=== PATIENT | female | born 1945 | race Caucasian/White ===

== ENCOUNTER 2016-12-04 11:14 | Emergency (ER) | payer MEDICARE, OTHER, MEDICAID ==
[2016-12-04] MEDS ORDERED: NS 0.9% 1000 ML*IV.FLUID BOLUS ONE (12:00)
[2016-12-04] MEDS ORDERED: Sucralfate TAB* 1 GM PO ONE (13:35)
[2016-12-04] MEDS ORDERED: Pantoprazole IV* 40 MG IV ONE (13:35)
[2016-12-04 13:59] LABS: Hematocrit 38 % (35-47); Hemoglobin 12.6 g/dl (12.0-16.0); Mean Corpuscular HGB Conc 34 g/dl (31-36); Mean Corpuscular Hemoglobin 30 pg (27-31); Mean Corpuscular Volume 90 fL (80-97); Mean Platelet Volume 9 um3 (7.4-10.4); Red Blood Count 4.17 10^6/ul (4.0-5.4); Red Cell Distribution Width 14 % (10.5-15); White Blood Count 22.3 10^3/ul (3.5-10.8)
[2016-12-04 14:11] LABS: Albumin 3.7 g/dL (3.2-5.2); BUN/Creatinine Ratio 23.9 (8-20); C Reactive Protein 354.7 mg/L (< 5.00); Calcium 9.3 mg/dL (8.6-10.3); EGFR Non-African American 59.8 (>60); Globulin 3.9 g/dL (2-4); Total Bilirubin 0.8 mg/dL (0.2-1.0); Total Protein 7.6 g/dL (6.4-8.9)
[2016-12-04 14:14] LABS: Potassium 2.6 mmol/L (3.5-5.0)
[2016-12-04] MEDS ORDERED: KCL 20 MEQ/100 ML IVPREMIX* 20 MEQ/100 ML BAG IV ONE (15:45)
[2016-12-04] MEDS ORDERED: Potassium Chlor TAB* 20 MEQ TAB.ER PO ONE (15:45)
[2016-12-04] MEDS ORDERED: NS 0.9% 1000 ML* 1,000 ML IV ONE (15:47)
[2016-12-04 17:53] LABS: Urine Bacteria 3+ (Absent); Urine Bilirubin Negative (Negative); Urine Glucose Negative (Negative); Urine Nitrite Negative (Negative)
--- NOTE | 2016-12-04 20:00 | RAD ---
Indication: Flulike symptoms for 3 days including nausea and vomiting. Elevated white blood cell count. Comparison: March 04, 2012 CT. Technique: Upright AP 1914 hours Report: Suboptimal inspiration with associated linear streaky subsegmental atelectasis. Grossly clear pleural spaces. Negative for pneumothorax. Cardiomegaly. Unremarkable central pulmonary vasculature accounting for hypoventilation. Negative for free air beneath the diaphragm. IMPRESSION: Hypoventilated exam with subsegmental atelectasis.
[2016-12-04 20:23] VITALS: BP 158/82
--- NOTE | 2016-12-05 06:56 | ED ---
Ana María Rodríguez Matthew, scribed for Mayo Herrera MD on 12/04/16 at 1141 . Abdominal Pain/Female - HPI Summary HPI Summary: A 71 y/o female presents to the ED with epigastric abdominal pain since 3 days ago. Associated symptoms include nausea, vomiting, and decreased appetite. She denies diarrhea. She's had no BM in the last two days, which is unusual. She normal has a BM daily. PMHx: HTN - History of Current Complaint Chief Complaint: EDGeneral Stated Complaint: FLU LIKE SYMPTOMS Time Seen by Provider: 12/04/16 11:28 Hx Obtained From: Patient ?: No Onset/Duration: Lasting Days, Still Present Timing: Constant Severity Initially: Mild Severity Currently: Mild Location: Epigastric Radiates: No Associated Signs and Symptoms: Positive: Decreased Appetite, Nausea, Vomiting. Negative: Diarrhea Allergies/Adverse Reactions: Allergies Allergy/AdvReac Type Severity Reaction Status Date / Time No Known Allergies Allergy Verified 11/26/12 08:41 PMH/Surg Hx/FS Hx/Imm Hx Endocrine/Hematology History: Reports: Hx Thyroid Disease - HYPERPARATHYROIDISM Cardiovascular History: Reports: Hx Hypertension - ON MEDICATION FOR Respiratory History: Reports: Hx Asthma - WILL BRING INHALER DAY OF SURGERY GI History: Reports: Hx Gastroesophageal Reflux Disease - ON ZANTAC Musculoskeletal History: Reports: Hx Arthritis - ALL OVER- TAKES LYRICA FOR Sensory History: Reports: Hx Contacts or Glasses - GLASSES Denies: Hx Hearing Aid Opthamlomology History: Reports: Hx Contacts or Glasses - GLASSES Psychiatric History: Reports: Hx Anxiety - ON MEDICATION FOR, Hx Depression - ON MEDICATION FOR - Surgical History Surgery Procedure, Year, and Place: RIGHT KNEE REPLACEMENT. LEFT KNEE SURGERY Hx Anesthesia Reactions: No Infectious Disease History: No Infectious Disease History: Denies: Traveled Outside the [place] in Last 30 Days - Family History Family History: No FHx of malignant hyperthermia. No FHx of anesthesia reaction - Social History Lives: Alone Alcohol Use: None Hx Substance Use: No Substance Use Type: Reports: None Hx Tobacco Use: No Review of Systems Constitutional: Other - decreased appetite Eyes: Negative ENT: Negative Cardiovascular: Negative Respiratory: Negative Positive: Abdominal Pain - epigastric. Negative: Vomiting, Nausea Genitourinary: Negative Musculoskeletal: Negative Skin: Negative Neurological: Negative Psychological: Normal All Other Systems Reviewed And Are Negative: Yes Physical Exam Triage Information Reviewed: Yes Vital Signs On Initial Exam: Initial Vitals Temp Pulse Resp BP Pulse Ox 97.7 F 82 20 124/84 100 12/04/16 11:19 12/04/16 11:19 12/04/16 11:19 12/04/16 11:19 12/04/16 11:19 Vital Signs Reviewed: Yes Appearance: Positive: No Pain Distress, Obese Skin: Positive: Other - Tinting; Dry Head/Face: Positive: Normal Head/Face Inspection Eyes: Positive: Normal ENT: Positive: Normal ENT inspection Neck: Positive: Supple, Nontender Respiratory/Lung Sounds: Positive: Clear to Auscultation, Breath Sounds Present Cardiovascular: Positive: RRR Abdomen Description: Positive: No Organomegaly, Soft, Other: - Mild tenderness in the epigastrium Bowel Sounds: Positive: Present Musculoskeletal: Positive: Normal Neurological: Positive: Normal, Alert, Oriented to Person Place, Time Psychiatric: Positive: Affect/Mood Appropriate Diagnostics - Vital Signs Vital Signs Temp Pulse Resp BP Pulse Ox 12/04/16 11:19 97.7 F 82 20 124/84 100 - Laboratory Lab Results: Lab Results 12/04/16 12/04/16 12/04/16 Range/Units 11:50 11:50 11:50 WBC 22.3 H (3.5-10.8) 10^3/ul RBC 4.17 (4.0-5.4) 10^6/ul Hgb 12.6 (12.0-16.0) g/dl Hct 38 (35-47) % MCV 90 (80-97) fL MCH 30 (27-31) pg MCHC 34 (31-36) g/dl RDW 14 (10.5-15) % Plt Count 342 (150-450) 10^3/ul MPV 9 (7.4-10.4) um3 Neut % (Auto) 88.6 H (38-83) % Lymph % (Auto) 4.8 L (25-47) % [place] % (Auto) 6.4 (1-9) % Eos % (Auto) 0 (0-6) % Baso % (Auto) 0.2 (0-2) % Absolute Neuts (auto) 19.7 H (1.5-7.7) 10^3/ul Absolute Lymphs (auto) 1.1 (1.0-4.8) 10^3/ul Absolute Monos (auto) 1.4 H (0-0.8) 10^3/ul Absolute Eos (auto) 0 (0-0.6) 10^3/ul Absolute Basos (auto) 0.1 (0-0.2) 10^3/ul Absolute Nucleated RBC 0 10^3/ul Nucleated RBC % 0 Sodium 128 L (133-145) mmol/L Potassium 2.6 L* (3.5-5.0) mmol/L Chloride 85 L (101-111) mmol/L Carbon Dioxide 32 (22-32) mmol/L Anion Gap 11 (2-11) mmol/L BUN 22 (6-24) mg/dL Creatinine 0.92 (0.51-0.95) mg/dL Est GFR ( Amer) 77.0 (>60) Est GFR (Non-Af Amer) 59.8 (>60) BUN/Creatinine Ratio 23.9 H (8-20) Glucose 143 H (70-100) mg/dL Lactic Acid 1.6 (0.5-2.0) mmol/L Calcium 9.3 (8.6-10.3) mg/dL Total Bilirubin 0.80 (0.2-1.0) mg/dL AST 11 L (13-39) U/L ALT 7 (7-52) U/L Alkaline Phosphatase 92 (34-104) U/L C-Reactive Protein 354.70 H (< 5.00) mg/L Total Protein 7.6 (6.4-8.9) g/dL Albumin 3.7 (3.2-5.2) g/dL Globulin 3.9 (2-4) g/dL Albumin/Globulin Ratio 0.9 L (1-3) Lipase 17 (11.0-82.0) U/L Urine Color Urine Appearance Urine pH (5-9) Ur Specific [place] (1.010-1.030) Urine Protein (Negative) Urine Ketones (Negative) Urine Blood (Negative) Urine Nitrate (Negative) Urine Bilirubin (Negative) Urine Urobilinogen (Negative) Ur Leukocyte Esterase (Negative) Urine WBC (Auto) (Absent) Urine RBC (Auto) (Absent) Ur Squamous Epith Cells (Absent) Urine Bacteria (Absent) Urine Glucose (Negative) 03/02/17 Range/Units 17:38 WBC (3.5-10.8) 10^3/ul RBC (4.0-5.4) 10^6/ul Hgb (12.0-16.0) g/dl Hct (35-47) % MCV (80-97) fL MCH (27-31) pg MCHC (31-36) g/dl RDW (10.5-15) % Plt Count (150-450) 10^3/ul MPV (7.4-10.4) um3 Neut % (Auto) (38-83) % Lymph % (Auto) (25-47) % [place] % (Auto) (1-9) % Eos % (Auto) (0-6) % Baso % (Auto) (0-2) % Absolute Neuts (auto) (1.5-7.7) 10^3/ul Absolute Lymphs (auto) (1.0-4.8) 10^3/ul Absolute Monos (auto) (0-0.8) 10^3/ul Absolute Eos (auto) (0-0.6) 10^3/ul Absolute Basos (auto) (0-0.2) 10^3/ul Absolute Nucleated RBC 10^3/ul Nucleated RBC % Sodium (133-145) mmol/L Potassium (3.5-5.0) mmol/L Chloride (101-111) mmol/L Carbon Dioxide (22-32) mmol/L Anion Gap (2-11) mmol/L BUN (6-24) mg/dL Creatinine (0.51-0.95) mg/dL Est GFR ( Amer) (>60) Est GFR (Non-Af Amer) (>60) BUN/Creatinine Ratio (8-20) Glucose (70-100) mg/dL Lactic Acid (0.5-2.0) mmol/L Calcium (8.6-10.3) mg/dL Total Bilirubin (0.2-1.0) mg/dL AST (13-39) U/L ALT (7-52) U/L Alkaline Phosphatase (34-104) U/L C-Reactive Protein (< 5.00) mg/L Total Protein (6.4-8.9) g/dL Albumin (3.2-5.2) g/dL Globulin (2-4) g/dL Albumin/Globulin Ratio (1-3) Lipase (11.0-82.0) U/L Urine Color [place] Urine Appearance Cloudy Urine pH 5.0 (5-9) Ur Specific [place] 1.018 (1.010-1.030) Urine Protein 2+(100 mg/dl) H (Negative) Urine Ketones Negative (Negative) Urine Blood 2+ H (Negative) Urine Nitrate Negative (Negative) Urine Bilirubin Negative (Negative) Urine Urobilinogen Negative (Negative) Ur Leukocyte Esterase Trace H (Negative) Urine WBC (Auto) 1+(6-10/hpf) H (Absent) Urine RBC (Auto) Trace(0-2/hpf) (Absent) Ur Squamous Epith Cells Present H (Absent) Urine Bacteria 3+ H (Absent) Urine Glucose Negative (Negative) Result Diagrams: 12/04/16 11:50 12/04/16 11:50 Lab Statement: Any lab studies that have been ordered have been reviewed, and results considered in the medical decision making process. Abdominal Pain Fem Course/Dx - Course Course Of Treatment: A 71 y/o female presents to the ED with epigastric abdominal pain since 3 days ago. Associated symptoms include nausea, vomiting, and decreased appetite. Labs were reviewed. She was found to have a marked leukocytosis nd hypokalemia. She was very dry and was hydrated and had her K replaced. She felt a lot better with GI meds and essentuially insisted on going home. I did convicne her to stay long enough to replace her K. I'm not sure why she is so symptomatic and hs such a high leukocytosis but she is unwilling to stay in the hospital. In the ED course, the patient was given 2L of fluids, KCL, Protonix, Potassium Chlor, and Carafate. Shes doing well in the ED and will be discharged home to follow-up with her PCP. - Diagnoses Provider Diagnoses: Vomiting, Dehydration Discharge - Discharge Plan Condition: Stable Disposition: HOME Patient Education Materials: Dehydration (ED), Acute Nausea and Vomiting (ED), Ondansetron (By mouth) Referrals: Edgar Deleon MD [Primary Care Provider] - 2 Days Additional Instructions: Please follow-up with your primary care physician in 2 days. The documentation as recorded by the Ana María camejo Matthew accurately reflects the service I personally performed and the decisions made by me, Mayo Herrera MD.
--- NOTE | 2016-12-06 14:54 | PN ---
Progress Note - Progress Note Note: Patient's urine culture shows sensitivity to macrobid, therefore this has been called into patient's pharmacy and patient notified of prescription. No further action needed.
--- NOTE | 2016-12-20 20:53 | ED ---
I, Abhi Doll, scribed for Chidi Truong MD on 12/04/16 at 2021 . Progress - Progress Note Progress Note: Dr. Herrera requested that I follow up with urine test results as well as CXR. He reported that the pt came in for replenishment of potassium. The pt was given potassium PO and IV fluids. Dr. Herrera wanted to admit the pt to the hospital seeing as the pt has leukocytosis. However the pt refused. Therefore Dr. Herrera recommended to follow up with test results and if positive give abx appropriately. If not, the pt is to be discharged home to follow up with her PCP. The pt still does not want to be admitted to the hospital. Therefore she will follow up with her PCP. Dr. Herrera did not think that the pt needs to sign out AMA. He thought the pt can be discharged home. She was given instructions to return to the ED if she does not improve or develops CP, SOD, palpitations. Patient understands and agrees. Course/Dx - Diagnoses Provider Diagnoses: Vomiting, Dehydration The documentation as recorded by the Lavon camejo Adam accurately reflects the service I personally performed and the decisions made by me, Chidi Truong MD.
== END 2016-12-04 20:21 | disposition home or self-care (01) ==
LOC: ED 11:14
DX: R11.10 Vomiting, unspecified (principal); E86.0 Dehydration; R10.13 Epigastric pain
CPT/HCPCS: 36415; 71010; 80053; 81003; 81015; 83605; 83690; 85025; 86140; 87077; 87086; 87186; 96374; 99283; A9270-GY; J3480

== ENCOUNTER 2019-08-25 08:17 | Inpatient (IN) | payer MEDICARE, MEDICAID ==
[2019-08-25] MEDS ORDERED: NS 0.9% 1000 ML** 1,000 ML IV ONE (08:53)
--- NOTE | 2019-08-25 08:54 | ED ---
Back Pain - HPI Summary HPI Summary: This patient is a 74 year old F presenting to [facility] with a chief complaint of back pain since 2 days ago. The pain started on her lower right then moved to the left. Pt has sciatica and says she never had this pain before. Pt denies FHx of aneurysms. The patient rates the pain 10/10 in severity. Symptoms aggravated by nothing. Symptoms alleviated by nothing. Patient reports chills, loss of appetite. Pt denies any fever, erythema of eyes, sore throat, CP, SOB, cough, abdominal pain, N/V, dysuria, hematuria, myalgia, edema, rash, tingling in legs, or dizziness. - History of Current Complaint Chief Complaint: EDBackInjuryPain Stated Complaint: BACK PAIN PER EMS Time Seen by Provider: 08/25/19 08:41 Hx Obtained From: Patient Onset/Duration: Sudden Onset, Lasting Days - 2, Still Present Onset/Duration: Started Days Ago - 2, Still Present Severity Initially: Moderate Severity Currently: Severe Pain Intensity: 10 Pain Scale Used: 0-10 Numeric Aggravating Symptom(s): Other - nothing Alleviating Symptom(s): Nothing Associated Signs And Symptoms: Positive: Other - positive - chills, loss of appetite. negative - any erythema of eyes, sore throat, CP, SOB, cough, N/V, dysuria, hematuria, myalgia, edema, rash, or dizziness.. Negative: Fever, Tingling, Abdominal Pain - Allergies/Home Medications Allergies/Adverse Reactions: Allergies Allergy/AdvReac Type Severity Reaction Status Date / Time No Known Allergies Allergy Verified 11/26/12 08:41 Home Medications: Home Medications Gabapentin CAP(*) [Neurontin 100 mg CAP(*)] 200 mg PO TID 08/25/19 [History Confirmed 08/25/19] Omeprazole (Nf) [Prilosec (NF)] 40 mg PO DAILY 08/25/19 [History Confirmed 08/25] Sertraline* [Zoloft*] 50 mg PO DAILY 08/25/19 [History Confirmed 08/25/19] dilTIAZem HCl [Cardizem 120 MG TAB] 120 mg PO DAILY 08/25/19 [History Confirmed 08/25/19] PMH/Surg Hx/FS Hx/Imm Hx Previously Healthy: Yes Endocrine/Hematology History: Reports: Hx Thyroid Disease - HYPERPARATHYROIDISM Cardiovascular History: Reports: Hx Hypertension - ON MEDICATION FOR Respiratory History: Reports: Hx Asthma - WILL BRING INHALER DAY OF SURGERY GI History: Reports: Hx Gastroesophageal Reflux Disease - ON ZANTAC Musculoskeletal History: Reports: Hx Arthritis - ALL OVER- TAKES LYRICA FOR Sensory History: Reports: Hx Contacts or Glasses - GLASSES Denies: Hx Legally Blind, Hx Deafness, Hx Hearing Aid Opthamlomology History: Reports: Hx Contacts or Glasses - GLASSES Denies: Hx Legally Blind EENT History: Denies: Hx Deafness Psychiatric History: Reports: Hx Anxiety - ON MEDICATION FOR, Hx Depression - ON MEDICATION FOR - Surgical History Surgical History: Yes Surgery Procedure, Year, and Place: RIGHT KNEE REPLACEMENT. LEFT KNEE SURGERY Hx Anesthesia Reactions: No Infectious Disease History: No Infectious Disease History: Denies: Traveled Outside the [place] in Last 30 Days - Family History Known Family History: Positive: None Family History: No FHx of malignant hyperthermia. No FHx of anesthesia reaction - Social History Occupation: Retired Alcohol Use: None Hx Substance Use: No Substance Use Type: Reports: None Hx Tobacco Use: No Smoking Status (MU): Never Smoked Tobacco Review of Systems Constitutional: Other - positive - loss of appetite Positive: Chills. Negative: Fever Negative: Erythema Negative: Sore Throat Negative: Chest Pain Negative: Shortness Of Breath, Cough Negative: Abdominal Pain, Vomiting, Nausea Negative: dysuria, hematuria Musculoskeletal: Other - positive - back pain Negative: Myalgia, Edema Negative: Rash Neurological: Other - negative - tingling in legs, dizziness All Other Systems Reviewed And Are Negative: Yes Physical Exam - Summary Physical Exam Summary: Constitutional: Well-developed, Well-nourished, Alert. (-) Distressed Skin: Warm, Dry HENT: Normocephalic; Atraumatic Eyes: Conjunctiva normal Neck: Musculoskeletal ROM normal neck. (-) JVD, (-) Stridor, (-) Tracheal deviation Cardio: Rhythm regular, rate normal, Heart sounds normal; Intact distal pulses; The pedal pulses are 2+ and symmetric. Radial pulses are 2+ and symmetric. (-) Murmur Pulmonary/Chest wall: Effort normal. (-) Respiratory distress, (-) Wheezes, (-) Rales Abd: Soft, suprapubic tenderness, (-) Distension, (-) Guarding, (-) Rebound Musculoskeletal: (-) Edema Lymph: (-) Cervical adenopathy Neuro: Alert, Oriented x3 Psych: Mood and affect Normal Triage Information Reviewed: Yes Vital Signs On Initial Exam: Initial Vitals Temp Pulse Resp BP Pulse Ox 97.6 F 102 29 189/95 95 08/25/19 08:28 08/25/19 08:28 08/25/19 08:28 08/25/19 08:28 08/25/19 08:28 Vital Signs Reviewed: Yes Procedures - Sedation Patient Received Moderate/Deep Sedation with Procedure: No Diagnostics - Vital Signs Vital Signs Temp Pulse Resp BP Pulse Ox 08/25/19 08:28 97.6 F 102 29 189/95 95 - Laboratory Result Diagrams: 08/25/19 09:51 08/25/19 09:51 Lab Statement: Any lab studies that have been ordered have been reviewed, and results considered in the medical decision making process. - Radiology Lumbar Spine MRI Radiology Interpretation Completed By: Radiologist Summary of Radiographic Findings: These findings were reviewed by Dr. Grissom. - CT Chest/ABD/Pel CTA CT Interpretation Completed By: Radiologist Summary of CT Findings: IMPRESSION: There is is no evidence of aortic dissection or aneurysmal dilatation. Calcific plaque is noted in the coronary arteries, superior mesenteric and celiac axis origin as well as the renal artery origins. These findings were reviewed by Dr. Grissom. Re-Evaluation - Re-Evaluation First Eval Comment: Pt reports 10/10 pain, denies hip pain, hip ROM is full bilaterally, no bony tenderness. She reports all pain is in gluteal area and down he back of the legs. The elevated CRP is of unknown source. Pt does not have epidural abscess risk factors. Back Pain Course/Dx - Course Course Of Treatment: This patient is a 74 year old F presenting to [facility] with a chief complaint of back pain since 2 days ago. The pain started on her lower right then moved to the left. Pt has sciatica and says she never had this pain before. Pt denies FHx of aneurysms. The patient rates the pain 10/10 in severity. Symptoms aggravated by nothing. Symptoms alleviated by nothing. Patient reports chills, loss of appetite. Pt denies any fever, erythema of eyes , sore throat, CP, SOB, cough, abdominal pain, N/V, dysuria, hematuria, myalgia , edema, rash, tingling in legs, or dizziness. Physical exam shows suprapubic tenderness. Lab results show MCH 32, absolute neuts 9.1, absolute lymphs 0.6, absolute monos 0.9, INR 1.29, potassium 2.7, chloride 95, anion gap 12, glucose 149, total bilirubin 1.30, albumin/globulin ratio 0.9. Chest/Abd/Pel CTA IMPRESSION: There is is no evidence of aortic dissection or aneurysmal dilatation. Calcific plaque is noted in the coronary arteries, superior mesenteric and celiac axis origin as well as the renal artery origins. During ED course, pt was given Zofran, morphine, and fluids. At 15:00, I spoke with Dr. Azalia Steen who will pend admission to rule out abscess and provide electrolytes for electrolyte repletion. Patient will be a sign-out at 19:00 on 08/25/[address] Lida Crocker MD from Dr. Jaxson Grissom MD at shift change, pending imaging results, further workup, and disposition. - Diagnoses Provider Diagnoses: Sciatica, Elevated C-reactive protein (CRP), Hypokalemia - Provider Notifications Discussed Care Of Patient With: Azalia Steen - At 15:00, I spoke with Dr. Azalia Steen who will pend admission to rule out abscess and provide electrolytes for electrolyte repletion. Time Discussed With Above Provider: 15:00 - Critical Care Time Critical Care Time: 30-74 min - 45 minutes Discharge ED - Sign-Out/Discharge Documenting (check all that apply): Sign-Out Patient Signing out patient TO: Lida Crocker - 19:00 on 08/25/19 - Discharge Plan Condition: Stable Referrals: Edgar Deleon MD [Primary Care Provider] - - Attestation Statements Document Initiated by Scribe: Yes Documenting Scribe: Cassy Cameron Provider For Whom Scribe is Documenting (Include Credential): Dr. Jaxson Grissom MD Scribe Attestation: ISb Susan Amquy, scribed for Dr. Jaxson Grissom MD on 08/25/19 at 1918. Status of Scribe Document: Ready
[2019-08-25] MEDS ORDERED: Ondansetron INJ* 2 MG/ML VIAL IV ONE (08:55)
[2019-08-25] MEDS ORDERED: Morphine 4 MG/ML VIAL (1 ml) 4 MG/ML VIAL IV ONE ×3 (08:55→18:35)
[2019-08-25 10:00] LABS: ABS Lymphocytes 0.6 10^3/ul (1.0-4.8); ABS Monocytes 0.9 10^3/ul (0-0.8); ABS Neutrophils 9.1 10^3/ul (1.5-7.7); Hematocrit 36 % (35-47); Hemoglobin 12.3 g/dL (12.0-16.0); Lymphocyte % 5.9 %; Mean Corpuscular HGB Conc 34 g/dL (31-36); Mean Corpuscular Hemoglobin 32 pg (27-31); Mean Corpuscular Volume 93 fL (80-97); Mean Platelet Volume 8.2 fL (7.4-10.4); Platelet Count 216 10^3/uL (150-450); Red Blood Count 3.88 10^6 /uL (3.70-4.87); Red Cell Distribution Width 15 % (10-15); White Blood Count 10.6 10^3/uL (3.5-10.8)
[2019-08-25 10:16] LABS: Activated Partial Thrombo Time 30.1 seconds (26.0-38.0); Albumin 3.5 g/dL (3.2-5.2); Albumin/Globulin Ratio 0.9 (1-3); BUN/Creatinine Ratio 16.5 (8-20); Calcium 8.9 mg/dL (8.6-10.3); EGFR African American 85.6 (>60); EGFR Non-African American 70.8 (>60); Globulin 3.7 g/dL (2-4); INR 1.29 (0.82-1.09); Total Bilirubin 1.3 mg/dL (0.2-1.0); Total Protein 7.2 g/dL (6.4-8.9)
[2019-08-25 10:18] LABS: Troponin I 0.01 ng/mL (<0.03)
[2019-08-25 10:29] LABS: Potassium 2.7 mmol/L (3.5-5.0)
[2019-08-25] MEDS ORDERED: Iohexol 350* (CONTRAST) 500 ML MDV IV ONE (10:41)
[2019-08-25 10:55] LABS: C Reactive Protein 210.69 mg/L (<8.01)
[2019-08-25] MEDS: KCL 20 MEQ/100 ML IVPREMIX* 20 MEQ/100 ML BAG IV SCH ×4 (11:00→16:30)
[2019-08-25 13:13] LABS: Urine Appearance Cloudy; Urine Bilirubin Negative (Negative); Urine Blood 1+ (Negative); Urine Color Yellow; Urine Glucose Negative (Negative); Urine Ketones Negative (Negative); Urine Nitrite Negative (Negative); Urine Protein 1+(30 mg/dL) (Negative); Urine Specific Gravity > 1.060 (1.010-1.030); Urine Urobilinogen Positive (Negative)
[2019-08-25 13:19] LABS: Urine Bacteria Absent (Absent); Urine Red Blood Cell 1+(3-5/hpf) (Absent); Urine Squamous Epithelial Cell Present (Absent); Urine White Blood Cell Absent (Absent)
[2019-08-25] MEDS ORDERED: Potassium Chlor TAB* 20 MEQ TAB.ER PO ONE (15:48)
[2019-08-25] MEDS ORDERED: Ketorolac INJ* 30 MG/ML 1 ML VIAL IV PUSH ONE (18:36)
--- NOTE | 2019-08-25 19:43 | ED ---
Progress - Progress Note Progress Note: This pt is a sign out to Dr. Crocker from Dr. Grissom at shift change 1939 pending MRI and disposition. - Results/Orders Results/Orders: Lumbar Spine MRI found the following results: 1. Mild dural enhancement is identified within the lower lumbar and upper sacral spine. Differential considerations include malignancy and infection. Clinical correlation is recommended. 2. Grade 1 anterolisthesis of L4 on L5. Mild levoscoliosis of the lumbar spine. 3. There is mild posterior paraspinal swelling posterior to the bilateral L3-4 and L4-5 facet joints. This is likely reactive to arthropathy, infectious, or inflammatory. 4. Levoscoliosis of the lumbar spine, with a measured Ponce angle of 20 degrees. Grade 1 anterolisthesis of L4 on L5. 5. Degenerative changes are noted at multiple lumbar and lower thoracic levels, as described above. 6. Mild narrowing of the thecal sac is identified at T12-L1, with minimal narrowing of the thecal sac at T11-12. 7. Neural foraminal narrowing identified at L1-2, L3-4, and L4-5, as detailed above. Right foraminal protrusion at L3-4. 8. Cholelithiasis. ED physician has reviewed this report. Re-Evaluation - Re-Evaluation First Eval Comment: Pt reports 10/10 pain, denies hip pain, hip ROM is full bilaterally, no bony tenderness. She reports all pain is in gluteal area and down he back of the legs. The elevated CRP is of unknown source. Pt does not have epidural abscess risk factors. Course/Dx - Course Course Of Treatment: This pt is a sign out to Dr. Crocker from Dr. Grissom at shift change 193908/25/19 pending MRI and disposition. - Diagnoses Provider Diagnoses: Sciatica, Low back pain, Hypokalemia - Provider Notifications Discussed Care Of Patient With: Yamel Waggoner Time Discussed With Above Provider: 22:02 Instructed by Provider To: Admit As Inpatient Admit/Transition Orders Completed By ED Provider: Yes - Critical Care Time Critical Care Time: 30-74 min - 45 minutes Discharge ED - Sign-Out/Discharge Documenting (check all that apply): Receiving Sign-Out Receiving patient FROM: Jaxson Grissom - Discharge Plan Condition: Stable Disposition: ADMITTED TO [facility] - Billing Disposition and Condition Condition: STABLE Disposition: Admitted to [facility] - Attestation Statements Document Initiated by Scribe: Yes Documenting Scribe: Jerry Penn Provider For Whom Robertibe is Documenting (Include Credential): Lida Crocker MD Scribe Attestation: IJerry, scribed for Lida Crocker MD on 08/26/19 at 0426. Scribe Documentation Reviewed: Yes Provider Attestation: The documentation as recorded by the Jerry camejo accurately reflects the service I personally performed and the decisions made by me, Lida Crocker MD Status of Scribe Document: Viewed Procedures - Sedation Patient Received Moderate/Deep Sedation with Procedure: No
[2019-08-25] MEDS ORDERED: Gadoteridol* (CONTRAST) 279.3 MG/ML 10 ML IV ONE (19:50)
[2019-08-25] MEDS ORDERED: Ondansetron INJ* 2 MG/ML VIAL IV PRN (22:29)
[2019-08-26 00:26] LABS: Erythrocyte Sed Rate 61 mm/Hr (0-29)
[2019-08-26] MEDS: oxyCODONE/Acetamin 5/325 MG* TAB PO PRN ×3 (04:48→17:19)
[2019-08-26] MEDS: Heparin VIAL(*) 5000 UNITS/ML VIAL (FIVE THOUSAND) SUBCUT SCH ×3 (04:49→20:03)
[2019-08-26 06:56] LABS: ABS Basophils 0.1 10^3/ul (0-0.2); ABS Eosinophils 0.1 10^3/ul (0-0.6); ABS Lymphocytes 0.9 10^3/ul (1.0-4.8); ABS Monocytes 0.7 10^3/ul (0-0.8); ABS Neutrophils 6.8 10^3/ul (1.5-7.7); Eosinophil % 0.7 %; Hematocrit 31 % (35-47); Hemoglobin 10.5 g/dL (12.0-16.0); Lymphocyte % 10.5 %; Mean Corpuscular HGB Conc 34 g/dL (31-36); Mean Corpuscular Hemoglobin 32 pg (27-31); Mean Corpuscular Volume 94 fL (80-97); Mean Platelet Volume 8.2 fL (7.4-10.4); Platelet Count 189 10^3/uL (150-450); Red Blood Count 3.27 10^6 /uL (3.70-4.87); Red Cell Distribution Width 14 % (10-15); White Blood Count 8.5 10^3/uL (3.5-10.8)
[2019-08-26 07:16] LABS: BUN/Creatinine Ratio 22.7 (8-20); Calcium 8.5 mg/dL (8.6-10.3); EGFR African American 90.9 (>60); EGFR Non-African American 75.1 (>60); Potassium 3.7 mmol/L (3.5-5.0)
--- NOTE | 2019-08-26 07:25 | HP ---
History of Present Illness - History of Present Illness Reason for Visit: back pain History of Present Illness: 74 yo female with history of Afib presented with severe back pain. She has sciatica on the left side and now same pain started involving her right side. She has severe spasms of her back and she is unable to walk due to the pain . Pt had an MRI done in the ED and it shows multilevel degenerative disc diseases , mild to moderate and multilevel facet arhtropathy. - Past Medical History Cardiac: AFIB Review of Systems - Measurements Intake and Output: Intake and Output Last 24 Hours 08/24/19 08/25/19 08/26/19 08/27/19 06:59 06:59 06:59 06:59 Intake Total 1400 Balance 1400 Weight 183 lb 11.2 oz Intake: IV Fluids 1400 Oral 0 Other: Estimated Void Small # Bowel Movements 0 # Voids 1 - Review of Systems Constitutional Symptoms: Negative: Weight Gain, Weight Loss, Weakness, Fatigue, Fever, Night Sweats, Unexplained Falls, Other Dermatology: Negative: Normal, Rash, Skin Lesions, Cancer, Skin Lumps, Other HEENT: Negative: Normal, Change in Hearing, Vertigo, Dental Problems, Tinnitus, Sinus Problem, Other Eyes: Negative: Normal, Change in Vision, Double Vision, Eye Pain, Glaucoma, Cataract, Contacts or Glasses, Other Pulmonary: Negative: Normal, Cough, Sputum, Hemoptysis, Wheezing, Respiratory Distress, Shortness of Breath, COPD, Asthma, Exercise Intolerance, Home Oxygen, Other Cardiology: Negative: Normal, Chest Pain, Shortness of Breath, Palpitations, Swelling of Ankles, Peripheral Vascular Dis, Edema, Faintness, Syncope, Claudication, Proximal NocturnalDyspnea, Orthopnoea, Other Gastroenterology: Negative: Normal, Abdominal Pain, Nausea, Vomiting, Anorexia, Indigestion, Difficulty Swallowing, Heartburn, Constipation, Diarrhea, Blood in Stools, Change in Bowel Habits, Haematemesis, Melena, Other Musculoskeletal: Positive: Joint Pain, Low Back Pain Hematologic/Lymphatic: Negative: Anemia, Easy Bruising, Hx Leukemia, Hx Lymphoma, Use of Anticoagulant, Use of Antiplatelet Drugs, Other Neurology: Negative: Normal, Headache, Migraines, Change in Vision, Diplopia, Dizziness , Change in Balancing, Change in Coordination, Change in Memory, Change in Speech, Change in Sphincter Function, Change in Walking, Numbness\Paresthesiae, Unexplained Weakness, Hx of Stroke\TIA, Hx of Seizures, Other Psychiatry: Negative: Normal, Depression, Anxiety, Depressed Mood, Anhedonia, Sexual Dysfunction, Weight Change, Guilt Feelings, Tearfulness, Unusual Fatigue, Unusual Anxiety, Suicidal Ideation, Hypomania, Eating Disorders, Other Objective Active Medications: Cyclobenzaprine HCl (Flexeril Tab*) 10 mg PO TID PRN PRN Reason: SPASMS - BACK Diltiazem HCl (Cardizem Cd Cap*) 120 mg PO DAILY [facility] Gabapentin (Neurontin Cap(*)) 200 mg PO TID [facility] Heparin Sodium (Porcine) (Heparin Vial(*)) 5,000 units SUBCUT Q8HR [facility] Last Admin: 08/26/19 04:49 Dose: 5,000 units Ondansetron HCl (Zofran Inj*) 4 mg IV Q4H PRN PRN Reason: NAUSEA/VOMITING Oxycodone/Acetaminophen (Percocet 5/325 Tab*) 1 tab PO Q4H PRN PRN Reason: PAIN - SEVERE Last Admin: 08/26/19 04:48 Dose: 1 tab Senna (Senokot 8.6 Mg Tab*) 1 tab PO BID PRN PRN Reason: CONSTIPATION Sertraline HCl (Zoloft*) 50 mg PO DAILY [facility] Vital Signs - 8 hr 08/25/19 08/25/19 08/26/19 23:25 23:55 00:21 Temperature 98.1 F 98.9 F Pulse Rate 81 88 86 Respiratory 20 18 Rate Blood Pressure 130/80 150/89 121/85 (mmHg) O2 Sat by Pulse 99 99 99 Oximetry 08/26/19 08/26/19 08/26/19 00:28 03:13 04:48 Temperature 98.2 F Pulse Rate 85 Respiratory 16 20 18 Rate Blood Pressure 139/87 (mmHg) O2 Sat by Pulse 100 Oximetry Oxygen Devices in Use Now: Nasal Cannula Appearance: distressed Eyes: No Scleral Icterus, PERRLA Ears/Nose/Mouth/Throat: Clear Oropharnyx, Mucous Membranes Moist Neck: NL Appearance and Movements; NL JVP, Trachea Midline Respiratory: Symmetrical Chest Expansion and Respiratory Effort, Clear to Auscultation, Clear to Percussion Cardiovascular: NL Sounds; No Murmurs; No JVD, No Edema Abdominal: NL Sounds; No Tenderness; No Distention Lymphatic: No Cervical Adenopathy Skin: No Rash or Ulcers, No Nodules or Sclerosis Neurological: Alert and Oriented x 3, - - her strength in her lower extremities 3/5, seem restricted from back pain. 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 MRi shows multilevel arthropathy of facet joints. Pt/Ot oxycodone PRN flexaril prn (2) Atrial fibrillation Current Visit: Yes Status: Acute Code(s): I48.91 - UNSPECIFIED ATRIAL FIBRILLATION SNOMED Code(s): 67951772 Comment: resume home meds (3) Full code status Current Visit: Yes Status: Acute Code(s): Z78.9 - OTHER SPECIFIED HEALTH STATUS SNOMED Code(s): 110421066 (4) DVT prophylaxis Current Visit: Yes Status: Acute Code(s): Z29.9 - ENCOUNTER FOR PROPHYLACTIC MEASURES, UNSPECIFIED SNOMED Code(s): 756847182 Comment: heparin sc
[2019-08-26] MEDS ORDERED: Gabapentin CAP(*) 100 MG PO SCH (09:00)
[2019-08-26] MEDS: Gabapentin CAP(*) 300 MG PO SCH ×3 (09:08→20:03)
[2019-08-26] MEDS: Diltiazem CD CAP* 120 MG PO SCH (09:08)
[2019-08-26] MEDS: Dexamethasone TAB* 4 MG PO SCH ×3 (09:08→20:03)
[2019-08-26] MEDS: Cyclobenzaprine TAB* 10 MG PO PRN ×2 (09:09→17:19)
[2019-08-26] MEDS: Sertraline* 50 MG TAB PO SCH (09:09)
--- NOTE | 2019-08-26 16:22 | PN ---
Subjective Date of Service: 08/26/19 Interval History: Patient seen this morning. complaining of severe 10/10 pain. no fever or chills. complaining of pain with any movement, however, I was able to have her lift her legs with no discomfort. She was tender on palpations at the right paralumbar spine at the L4-L5. Past Medical History: Unchanged from Admission Objective Active Medications: Cyclobenzaprine HCl (Flexeril Tab*) 10 mg PO TID PRN PRN Reason: SPASMS - BACK Last Admin: 08/26/19 09:09 Dose: 10 mg Dexamethasone (Decadron Tab*) 4 mg PO TID [facility] Last Admin: 08/26/19 14:19 Dose: 4 mg Diltiazem HCl (Cardizem Cd Cap*) 120 mg PO DAILY [facility] Last Admin: 08/26/19 09:08 Dose: 120 mg Gabapentin (Neurontin Cap(*)) 300 mg PO TID [facility] Last Admin: 08/26/19 14:19 Dose: 300 mg Heparin Sodium (Porcine) (Heparin Vial(*)) 5,000 units SUBCUT Q8HR [facility] Last Admin: 08/26/19 14:19 Dose: 5,000 units Ketorolac Tromethamine (Toradol Inj*) 30 mg IM Q6H PRN PRN Reason: PAIN - MODERATE Stop: 08/31/19 16:14 Ondansetron HCl (Zofran Inj*) 4 mg IV Q4H PRN PRN Reason: NAUSEA/VOMITING Oxycodone/Acetaminophen (Percocet 5/325 Tab*) 1 tab PO Q4H PRN PRN Reason: PAIN - SEVERE Last Admin: 08/26/19 09:08 Dose: 1 tab Senna (Senokot 8.6 Mg Tab*) 1 tab PO BID PRN PRN Reason: CONSTIPATION Sertraline HCl (Zoloft*) 50 mg PO DAILY [facility] Last Admin: 08/26/19 09:09 Dose: 50 mg Vital Signs - 8 hr 08/26/19 08/26/19 08/26/19 09:08 09:09 11:10 Temperature Pulse Rate Respiratory 20 20 18 Rate Blood Pressure (mmHg) O2 Sat by Pulse Oximetry 08/26/19 08/26/19 11:15 14:19 Temperature 98.2 F Pulse Rate 99 Respiratory 18 18 Rate Blood Pressure 155/86 (mmHg) O2 Sat by Pulse 99 Oximetry Oxygen Devices in Use Now: Nasal Cannula Appearance: awake. alert. mild distress from pain. Eyes: No Scleral Icterus, PERRLA, - - EOMI Ears/Nose/Mouth/Throat: Mucous Membranes Moist Neck: NL Appearance and Movements; NL JVP, Trachea Midline Respiratory: Symmetrical Chest Expansion and Respiratory Effort, Clear to Auscultation Cardiovascular: NL Sounds; No Murmurs; No JVD Abdominal: NL Sounds; No Tenderness; No Distention Extremities: No Edema, - - tender at the lumbar spine right paravertebral area Skin: No Rash or Ulcers Neurological: Alert and Oriented x 3 Result Diagrams: 08/26/19 06:41 08/26/19 06:41 Microbiology and Other Data: Microbiology 08/25/19 10:00 Aerobic Blood Culture - Preliminary Blood Venous No Growth Day 1 Anaerobic Blood Culture - Preliminary No Growth Day 1 08/25/19 09:51 Aerobic Blood Culture - Preliminary Blood Venous No Growth Day 1 Anaerobic Blood Culture - Preliminary No Growth Day 1 Assess/Plan/Problems-Billing Assessment: 74 y/o female admitted for acute low back pain, 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 Elevated CRP and ESR. - Patient Problems (1) Low back pain Current Visit: Yes Status: Acute Code(s): M54.5 - LOW BACK PAIN SNOMED Code(s): 031041595 Comment: - Given the MRI finding and dural enhacement will try to get hold of Neurosurgery to evaluate. - No fever, no WBC. BC ordered. - Will add toradol prn, continue oxycodone. Added decadron. - Reordered ESR and CRP to trend for am. (2) Atrial fibrillation Current Visit: Yes Status: Acute Code(s): I48.91 - UNSPECIFIED ATRIAL FIBRILLATION SNOMED Code(s): 60726411 Comment: - Continue diltiazem (3) DVT prophylaxis Current Visit: Yes Status: Acute Code(s): Z29.9 - ENCOUNTER FOR PROPHYLACTIC MEASURES, UNSPECIFIED SNOMED Code(s): 601875245 Comment: heparin sc
[2019-08-26] MEDS: Ketorolac INJ* 30 MG/ML 1 ML VIAL IM PRN (20:01)
[2019-08-26] MEDS: Senna TAB 8.6 mg* TAB PO PRN (20:04)
[2019-08-27] MEDS: oxyCODONE/Acetamin 5/325 MG* TAB PO PRN ×3 (01:56→20:15)
[2019-08-27] MEDS: Ketorolac INJ* 30 MG/ML 1 ML VIAL IM PRN ×2 (05:29→15:05)
[2019-08-27] MEDS: Heparin VIAL(*) 5000 UNITS/ML VIAL (FIVE THOUSAND) SUBCUT SCH ×3 (05:32→20:18)
[2019-08-27 07:05] LABS: ABS Lymphocytes 0.4 10^3/ul (1.0-4.8); ABS Monocytes 0.1 10^3/ul (0-0.8); ABS Neutrophils 7.2 10^3/ul (1.5-7.7); Hematocrit 31 % (35-47); Hemoglobin 10.6 g/dL (12.0-16.0); Lymphocyte % 4.7 %; Mean Corpuscular HGB Conc 34 g/dL (31-36); Mean Corpuscular Hemoglobin 32 pg (27-31); Mean Corpuscular Volume 94 fL (80-97); Platelet Count 230 10^3/uL (150-450); Red Blood Count 3.34 10^6 /uL (3.70-4.87); Red Cell Distribution Width 14 % (10-15); White Blood Count 7.7 10^3/uL (3.5-10.8)
[2019-08-27 07:15] LABS: Calcium 9.3 mg/dL (8.6-10.3); Magnesium 1.5 mg/dL (1.9-2.7); Potassium 4.3 mmol/L (3.5-5.0)
[2019-08-27 07:21] LABS: C Reactive Protein 242.29 mg/L (<8.01); EGFR African American 67.6 (>60); EGFR Non-African American 55.8 (>60)
[2019-08-27] MEDS: Diltiazem CD CAP* 120 MG PO SCH (08:43)
[2019-08-27] MEDS: Gabapentin CAP(*) 300 MG PO SCH ×3 (08:43→20:16)
[2019-08-27] MEDS: Sertraline* 50 MG TAB PO SCH (08:44)
[2019-08-27] MEDS: Senna TAB 8.6 mg* TAB PO PRN ×2 (08:45→20:17)
[2019-08-27] MEDS: Dexamethasone TAB* 4 MG PO SCH ×3 (08:45→20:17)
[2019-08-27] MEDS ORDERED: Magnesium Sulfate 2 GM IV* 2 GM/50 ML BAG IVPB ONE (09:00)
[2019-08-27 09:36] LABS: Erythrocyte Sed Rate 93 mm/Hr (0-29)
--- NOTE | 2019-08-27 12:20 | PN ---
Subjective Date of Service: 08/27/19 Interval History: Patient was seen today, she still having increase pain. She reports 8/10 pain from 10 yesterday despite (Toradol, Oxycodone, Decadron, Flexeril and Gabapentin). She is still having difficulty for mpain when she is moving her leg (right leg). Her labs from this morning were significant for increase in ESR and CRP form admission. She remains with no fever and her WBC remains within normal range. At this time, I am more concerned that the findings from her admission's MRI are more suggestive of infection rather than inflammatory response. I was able to discuss the case with neurosurgery Dr. Porter and he will kindly see the patient today. Meanwhile he recommended to obtain repeat MRI of the lumbar spine with and without for comparison and to rule out developing abscess, also to obtain L/S xray with flexion and extension. Both were ordered. I also discussed the MRI findings (which was done on admission) with the radiologist contractor [employer], and it was his impression/recommendations that the finding are not a strong indicator of metastasis but rather an infectious process. Therefore I will hold off on obtaining the MRI of brain/cervical/thoracic for now as metastasis dropping is less likely to be the case. I will re-evaluate further testing pending her repeat MRI from today. Past Medical History: Unchanged from Admission Objective Active Medications: Aspirin (Aspirin Ec Tab*) 81 mg PO DAILY [facility] Cyclobenzaprine HCl (Flexeril Tab*) 10 mg PO TID PRN PRN Reason: SPASMS - BACK Last Admin: 08/26/19 17:19 Dose: 10 mg Dexamethasone (Decadron Tab*) 4 mg PO TID [facility] Last Admin: 08/27/19 08:45 Dose: 4 mg Diltiazem HCl (Cardizem Cd Cap*) 180 mg PO DAILY [facility] Diltiazem HCl (Cardizem Tab*) 60 mg PO ONCE ONE Stop: 08/27/19 14:01 Gabapentin (Neurontin Cap(*)) 300 mg PO TID [facility] Last Admin: 08/27/19 08:43 Dose: 300 mg Heparin Sodium (Porcine) (Heparin Vial(*)) 5,000 units SUBCUT Q8HR [facility] Last Admin: 08/27/19 05:32 Dose: 5,000 units Ketorolac Tromethamine (Toradol Inj*) 30 mg IM Q6H PRN PRN Reason: PAIN - MODERATE Stop: 08/31/19 16:14 Last Admin: 08/27/19 05:29 Dose: 30 mg Ondansetron HCl (Zofran Inj*) 4 mg IV Q4H PRN PRN Reason: NAUSEA/VOMITING Oxycodone/Acetaminophen (Percocet 5/325 Tab*) 1 tab PO Q4H PRN PRN Reason: PAIN - SEVERE Last Admin: 08/27/19 08:44 Dose: 1 tab Pantoprazole Sodium (Protonix Tab*) 40 mg PO DAILY [facility] Senna (Senokot 8.6 Mg Tab*) 1 tab PO BID PRN PRN Reason: CONSTIPATION Last Admin: 08/27/19 08:45 Dose: 1 tab Sertraline HCl (Zoloft*) 50 mg PO DAILY [facility] Last Admin: 08/27/19 08:44 Dose: 50 mg Vital Signs - 8 hr 08/27/19 08/27/19 08/27/19 04:21 04:23 04:25 Temperature 97.6 F Pulse Rate 77 Respiratory 19 16 Rate Blood Pressure 129/80 (mmHg) O2 Sat by Pulse 89 93 Oximetry 08/27/19 08/27/19 08/27/19 07:15 08:00 08:43 Temperature 97.0 F Pulse Rate 94 Respiratory 16 18 Rate Blood Pressure 128/90 (mmHg) O2 Sat by Pulse 90 91 Oximetry 08/27/19 08/27/19 08:44 10:20 Temperature Pulse Rate Respiratory 18 18 Rate Blood Pressure (mmHg) O2 Sat by Pulse Oximetry Oxygen Devices in Use Now: Nasal Cannula Appearance: awake, alert. in mild distress from pain. laying in bed and having significant distress from pain with any movement Eyes: No Scleral Icterus, - - EOMI Neck: NL Appearance and Movements; NL JVP, Trachea Midline Respiratory: Symmetrical Chest Expansion and Respiratory Effort, - - wheezing with exertions, bibasilar rales Cardiovascular: NL Sounds; No Murmurs; No JVD, - - irregularly irregular Abdominal: NL Sounds; No Tenderness; No Distention, - - obese Extremities: - - trace edema. positive leg raising right side. no foot drop. power 5/5 Neurological: Alert and Oriented x 3, - - right paravertebral tendernss at the level L4-L5 and right iliac crest. Result Diagrams: 08/27/19 06:31 08/27/19 06:31 Microbiology and Other Data: Microbiology 08/25/19 10:00 Aerobic Blood Culture - Preliminary Blood Venous No Growth Day 1 Anaerobic Blood Culture - Preliminary No Growth Day 1 08/25/19 09:51 Aerobic Blood Culture - Preliminary Blood Venous No Growth Day 1 Anaerobic Blood Culture - Preliminary No Growth Day 1 Assess/Plan/Problems-Billing Assessment: 74 y/o female admitted for acute low back pain, 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 Elevated CRP and ESR. - Patient Problems (1) Low back pain Current Visit: Yes Status: Acute Code(s): M54.5 - LOW BACK PAIN SNOMED Code(s): 952620455 Comment: - Given the MRI finding and dural enhacement, I did consult Neurosurgery to evaluate. - No fever, no WBC. BC ordered so far negative x 48 hrs. - very minimal improvement on toradol prn, oxycodone, decadron, flexeril and gabapentin - Re ESR and CRP trending upward despite decadron and toradol. - I was able to discuss the case with neurosurgery Dr. Porter, he recommended to obtain repeat MRI of the lumbar spine with and without for comparison and to rule out developing abscess, also to obtain L/S xray with flexion and extension. - I also discussed the MRI findings (which was done on admission) with the radiologist [employer], and it was his impression/recommendations that the finding are not a strong indicator of metastasis but rather an infectious process. Therefore I will hold off on obtaining the MRI of brain/cervical/thoracic for now as metastasis dropping is less likely to be the case. I will re-evaluate further testing pending her repeat MRI from today. (2) Atrial fibrillation Current Visit: Yes Status: Acute Code(s): I48.91 - UNSPECIFIED ATRIAL FIBRILLATION SNOMED Code(s): 44670091 Comment: - Continue diltiazem - Patient has not followed with first coat sander or on any anticoagulations - I did increase her cardizem to 180 mg daily, added aspirin [address] her on tele to monitor for RVR as she does have elevated pulse by vitals - Echo ordered to assess LV functions - Will discuss anticoagulation once we have a plan whether or not she does require interventions. (3) DVT prophylaxis Current Visit: Yes Status: Acute Code(s): Z29.9 - ENCOUNTER FOR PROPHYLACTIC MEASURES, UNSPECIFIED SNOMED Code(s): 404310695 Comment: heparin sc
[2019-08-27] MEDS: Pantoprazole TAB * 40 MG TAB PO SCH (12:31)
[2019-08-27] MEDS ORDERED: Gadoteridol* (CONTRAST) 279.3 MG/ML 10 ML IV ONE (13:41)
[2019-08-27] MEDS ORDERED: Diltiazem TAB* 60 MG PO ONE (14:00)
[2019-08-27] MEDS: Aspirin EC TAB* 81 MG TAB.EC PO SCH (14:56)
[2019-08-27] MEDS: Cyclobenzaprine TAB* 10 MG PO PRN ×2 (15:06→20:17)
--- NOTE | 2019-08-27 15:45 | CONS ---
CONSULTATION NOTE: DATE OF CONSULT: 08/27/19 HISTORY OF PRESENT ILLNESS: The patient is a very pleasant 74-year-old female with a history of arthritis, who presented to the emergency room with severe back pain starting approximately 4 days ago. The patient had gradual onset of pain without any history of injury. The patient reports that the pain would occasionally go to the lower extremities. She reports that she has been having chronic pain for a long time and this is an exacerbation of her chronic problem. The patient reports that she has no weakness, numbness or tingling of her extremities. She has difficulty with ambulation due to the back pain. She denies any urinary or GI incontinence. The patient denies any fever, urinary infection symptoms, shortness of breath, cough, or chest pain. The patient is . 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 PAST MEDICAL HISTORY: Hyperparathyroidism, hypertension, asthma, GERD, osteoarthritis, anxiety. PAST SURGICAL HISTORY: Right knee replacement, left knee surgery. MEDICATIONS: At home, the patient is on: 1. Gabapentin. 2. Omeprazole. 3. Sertraline. 4. Diltiazem. ALLERGIES: No known drug allergies. FAMILY HISTORY: Noncontributory. SOCIAL HISTORY: Tobacco, negative. Alcohol, occasionally. Recreational drug use, negative. PHYSICAL EXAM: The patient is not in acute distress. She is awake, alert, and oriented x3. Her pupils are equal and reactive. Cranial nerves II through XII are grossly intact. Motor 4-5/5 in all extremities. No pronator drift. Sensory grossly intact to light touch. Deep tendon reflexes +1 bilaterally. No clonus. No Babinski. Tino's negative. Straight leg raise test negative in the sitting position. No tenderness to palpation of the thoracic or lumbar spine. She has free range of motion of the cervical spine. The patient does have tenderness to palpation of the paraspinal area towards the right side. No meningeal signs. No neck stiffness. DIAGNOSTIC STUDIES: The patient had a CT scan of the abdomen that reveals a grade 1 spondylolisthesis at L4-5 without evidence of bone destruction or fractures. The patient had an MRI of her lumbar spine revealing dural thickening in the lower lumbar spine extending to the sacral segment without evidence of abscess, without evidence of diskitis. There is some increased inversion recovery signal at L4-5 facet with a grade 1 spondylolisthesis at the same level. The patient had repeat MRI today that did not reveal any evidence of abscess or hematoma. The dural enhancement seems to be improved and there is still increased signal at L4-5 predominant facets with a grade I spondylolisthesis at that level. The findings were discussed with Dr Avalos. The patient had flexion and extension x-rays did not reveal any evidence of dynamic instability.Revealed stable grade 1 spondylolisthesis at L4-5 and minor spondylolisthesis at L5-S1 without evidence of instability on dynamic views. ASSESSMENT: The patient is a very pleasant 74-year-old female with severe back pain with MRI findings consistent with dural enhancement, L4-5 grade I spondylolisthesis. PLAN: The patient at this point is doing neurologically well. Her MRI does not reveal any evidence of abscess and flexion and extension x-rays did not reveal any evidence of dynamic instability. The patient has increased sed rate and CRP. Dr. Wolff kindly reviewed the films with Radiology today and suspicion for metastatic disease or leptomeningeal carcinomatosis is low. At this point, consideration for Neurology consult and Infectious Disease consult can be made and the patient may benefit from rheumatology evaluation. If symptoms persist, then repeat MRI of the lumbar spine or body scan may be considered. If other etiologies are excluded and septic arthritis of L4-5 facets is a consideration, a CT guided biopsy and culture could be considered prior to possible surgical intervention. Thank you for allowing us to participate in the care of this patient. Please do not hesitate to contact our office in case you have any further questions or concerns regarding the care of this patient. [id number]/[facility] #: [id number] STEFANY
[2019-08-28] MEDS: Heparin VIAL(*) 5000 UNITS/ML VIAL (FIVE THOUSAND) SUBCUT SCH ×2 (05:11→14:12)
[2019-08-28 06:18] LABS: ABS Lymphocytes 0.3 10^3/ul (1.0-4.8); ABS Monocytes 0.1 10^3/ul (0-0.8); ABS Neutrophils 6.6 10^3/ul (1.5-7.7); Hematocrit 30 % (35-47); Hemoglobin 10.2 g/dL (12.0-16.0); Lymphocyte % 4.4 %; Mean Corpuscular HGB Conc 34 g/dL (31-36); Mean Corpuscular Hemoglobin 32 pg (27-31); Mean Corpuscular Volume 94 fL (80-97); Mean Platelet Volume 8.6 fL (7.4-10.4); Platelet Count 261 10^3/uL (150-450); Red Blood Count 3.21 10^6 /uL (3.70-4.87); Red Cell Distribution Width 14 % (10-15)
[2019-08-28 06:23] LABS: Albumin 3.2 g/dL (3.2-5.2); Calcium 9.3 mg/dL (8.6-10.3); Indirect Bilirubin 0.3 mg/dL (0.3-1.0); Magnesium 2.2 mg/dL (1.9-2.7); Potassium 4.2 mmol/L (3.5-5.0); Total Bilirubin 0.4 mg/dL (0.2-1.0)
[2019-08-28 06:29] LABS: BUN/Creatinine Ratio 32.3 (8-20); EGFR African American 46.9 (>60); EGFR Non-African American 38.8 (>60); Globulin 3.2 g/dL (2-4); Phosphorus 4.3 mg/dL (2.5-5.0); Total Protein 6.4 g/dL (6.4-8.9)
[2019-08-28] MEDS: Diltiazem CD CAP* 180 MG PO SCH (07:36)
[2019-08-28] MEDS: Pantoprazole TAB * 40 MG TAB PO SCH (07:36)
[2019-08-28] MEDS: Senna TAB 8.6 mg* TAB PO PRN (07:36)
[2019-08-28] MEDS: Dexamethasone TAB* 4 MG PO SCH ×3 (07:36→19:41)
[2019-08-28] MEDS: Gabapentin CAP(*) 300 MG PO SCH ×3 (07:36→19:41)
[2019-08-28] MEDS: Aspirin EC TAB* 81 MG TAB.EC PO SCH (07:37)
[2019-08-28] MEDS: Sertraline* 50 MG TAB PO SCH (07:37)
[2019-08-28] MEDS: Ketorolac INJ* 30 MG/ML 1 ML VIAL IM PRN (07:37)
[2019-08-28] MEDS: oxyCODONE/Acetamin 5/325 MG* TAB PO PRN (12:16)
--- NOTE | 2019-08-28 13:14 | PN ---
Subjective Date of Service: 08/28/19 Interval History: Patient seen today, she feels minimal improvement but her exam and mobility has significantly improved. she is not as limited in her movement in lower extremity. moving her right extremity with less difficulty. she is less tender at her right paravertebral area. Also noted to be have wheezing and tacchypanea. but her breathing/wheezing is somehow self induced by forcing her expirations. Initially I was concerned for hypoxia. However, ABG room air done and it was normal with Pao2 92 or room and saturations 99%. I did assistant football coach her to breath slowly and calmly and her respiration improved. Past Medical History: Unchanged from Admission Objective Active Medications: Aspirin (Aspirin Ec Tab*) 81 mg PO DAILY [facility] Last Admin: 08/28/19 07:37 Dose: 81 mg Cyclobenzaprine HCl (Flexeril Tab*) 10 mg PO TID PRN PRN Reason: SPASMS - BACK Last Admin: 08/27/19 20:17 Dose: 10 mg Dexamethasone (Decadron Tab*) 4 mg PO TID [facility] Last Admin: 08/28/19 07:36 Dose: 4 mg Diltiazem HCl (Cardizem Cd Cap*) 180 mg PO DAILY [facility] Last Admin: 08/28/19 07:36 Dose: 180 mg Gabapentin (Neurontin Cap(*)) 300 mg PO TID [facility] Last Admin: 08/28/19 07:36 Dose: 300 mg Heparin Sodium (Porcine) (Heparin Vial(*)) 5,000 units SUBCUT Q8HR [facility] Last Admin: 08/28/19 05:11 Dose: 5,000 units Ondansetron HCl (Zofran Inj*) 4 mg IV Q4H PRN PRN Reason: NAUSEA/VOMITING Oxycodone/Acetaminophen (Percocet 5/325 Tab*) 1 tab PO Q4H PRN PRN Reason: PAIN - SEVERE Last Admin: 08/28/19 12:16 Dose: 1 tab Pantoprazole Sodium (Protonix Tab*) 40 mg PO DAILY [facility] Last Admin: 08/28/19 07:36 Dose: 40 mg Senna (Senokot 8.6 Mg Tab*) 1 tab PO BID PRN PRN Reason: CONSTIPATION Last Admin: 08/28/19 07:36 Dose: 1 tab Sertraline HCl (Zoloft*) 50 mg PO DAILY [facility] Last Admin: 08/28/19 07:37 Dose: 50 mg Vital Signs - 8 hr 08/28/19 08/28/19 08/28/19 07:15 07:36 08:00 Temperature 97.3 F Pulse Rate 75 Respiratory 20 20 20 Rate Blood Pressure 141/86 (mmHg) O2 Sat by Pulse 97 Oximetry 08/28/19 08/28/19 08/28/19 10:39 11:15 12:16 Temperature 98.5 F Pulse Rate 73 Respiratory 18 18 20 Rate Blood Pressure 127/75 (mmHg) O2 Sat by Pulse 97 Oximetry Oxygen Devices in Use Now: None Appearance: awake, alert, very anxious. hyperventilating but I was able to assistant football coach her down. Eyes: - - EOMI Ears/Nose/Mouth/Throat: NL Teeth, Lips, Gums, Mucous Membranes Moist Neck: NL Appearance and Movements; NL JVP, Trachea Midline Respiratory: Symmetrical Chest Expansion and Respiratory Effort, Clear to Auscultation, - - anxious and hyperventilate Cardiovascular: NL Sounds; No Murmurs; No JVD, No Edema Abdominal: NL Sounds; No Tenderness; No Distention Neurological: Alert and Oriented x 3, NL Muscle Strength and Tone - 5/5 Result Diagrams: 08/28/19 05:15 08/28/19 05:15 Microbiology and Other Data: Microbiology 08/25/19 10:00 Aerobic Blood Culture - Preliminary Blood Venous No Growth Day 1 Anaerobic Blood Culture - Preliminary No Growth Day 1 08/25/19 09:51 Aerobic Blood Culture - Preliminary Blood Venous No Growth Day 1 Anaerobic Blood Culture - Preliminary No Growth Day 1 Assess/Plan/Problems-Billing Assessment: 74 y/o female admitted for acute low back pain, 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 Elevated CRP and ESR. - Patient Problems (1) Low back pain Current Visit: Yes Status: Acute Code(s): M54.5 - LOW BACK PAIN SNOMED Code(s): 994933707 Comment: - Given the MRI finding and dural enhacement, I did consult Neurosurgery to evaluate. - Dr. Garvey input appreciated. - No fever, no WBC. BC ordered so far negative x 48 hrs. - Subjectively, the patient report minimal improvement, however; objectively I do appreciate significant improvement in her physical exam today with her current treatment off toradol prn, oxycodone, decadron, flexeril and gabapentin. (Toradol discontinued today due to increase in BUN/Cr) - I will repeat her ESR and CRP tomorrow for trending. If furhter increase we may need to consult rheumatology and or neurology but for now, given improvement I will defer consultation unless her ESR anc CRP continue to rise - I also discussed the MRI findings (which was done on admission) with the radiologist community relations rep, and it was his impression/recommendations that the finding are not a strong indicator of metastasis but rather an infectious/Inflammatory process. - Repeat MRI 08/27/19 did reveal improvement in the enhacement. - Therefore, I do recommend monitoring 1-2 days with PT/OT and antiinflammatory , and may need STR if she is agreable. (2) Atrial fibrillation Current Visit: Yes Status: Acute Code(s): I48.91 - UNSPECIFIED ATRIAL FIBRILLATION SNOMED Code(s): 64424778 Comment: - Continue diltiazem - Patient has not followed with inside account executive nor she was on any anticoagulations - I did increase her cardizem to 180 mg daily, I added aspirin 81 mg daily. I did place her on tele to monitor for RVR if any (none so far) - Echo ordered to assess LV functions - Pending at the time of his dictations - I did discuss with the patient her Afib but she denies ever knowing about it. she does not follow with cardiology. Her [id number] score is "4" and her HAS-Bled Score is "3" (high risk of bleed) due to her concurrent therapy with NSAID and steroid for her back pain. - Therefore; I added aspirin alone until she is able to come off the steroid and ibuprofen. Once she is off the steroid and ibuprofen she should be placed on either xaretlo and or eliquis. All that is and can be done as outpatient and referral to oupatient cardiology by her PCP can be done. This is incidental diagnosis. (3) Hypertension Current Visit: Yes Status: Acute Code(s): I10 - ESSENTIAL (PRIMARY) HYPERTENSION SNOMED Code(s): 14305185 Comment: - Diltiazem CD 180 mg daily (4) SARAH (acute kidney injury) Current Visit: Yes Status: Acute Code(s): N17.9 - ACUTE KIDNEY FAILURE, UNSPECIFIED SNOMED Code(s): 92597306 Comment: - due to NSAID, Toradol, Decadron - Off toradol. monitor daily. if not improved may need IVF/Maxwell - Will order bladder scan to rule out retentions for her pain medications (5) Wheezy Current Visit: Yes Status: Acute Code(s): R06.2 - WHEEZING SNOMED Code(s) : 29216940 Comment: - self induced unintentionally due to pain and hyperventilations - Coping and coaching management (6) DVT prophylaxis Current Visit: Yes Status: Acute Code(s): Z29.9 - ENCOUNTER FOR PROPHYLACTIC MEASURES, UNSPECIFIED SNOMED Code(s): 429588015 Comment: heparin sc
[2019-08-28] MEDS: Cyclobenzaprine TAB* 10 MG PO PRN (14:10)
--- NOTE | 2019-08-28 15:33 | PN ---
Progress Note - Progress Note Date of Service: 08/28/19 SOAP: Subjective: []No events ON. Tolerates PO well, Voids, Ambulates to bathroom. Pain better controlled today. Objective: []VSS, Afebrile. AAOx3, ZENAIDA, CN II-XII grossly intact, Motor 5/5 all extremities Sensory grossly intact to light touch Assessment: []74 yof with axial back pain, Grade I spondylolisthesis L4-5 with dura enhancement/thickening. Plan: [] Monitor VS Neurochecks Follow inflammatory markers. May consider ID consult and rheumatology consult. No acute NS intervention at this point. Appreciate IM care. Efrem Porter MD
[2019-08-28 19:11] LABS: ABS Lymphocytes 0.2 10^3/ul (1.0-4.8); ABS Monocytes 0.2 10^3/ul (0-0.8); ABS Neutrophils 8.1 10^3/ul (1.5-7.7); Hematocrit 33 % (35-47); Hemoglobin 11.2 g/dL (12.0-16.0); Lymphocyte % 2.9 %; Mean Corpuscular HGB Conc 34 g/dL (31-36); Mean Corpuscular Hemoglobin 32 pg (27-31); Mean Corpuscular Volume 94 fL (80-97); Platelet Count 310 10^3/uL (150-450); Red Blood Count 3.48 10^6 /uL (3.70-4.87); Red Cell Distribution Width 15 % (10-15); White Blood Count 8.6 10^3/uL (3.5-10.8)
[2019-08-28] MEDS ORDERED: ALPRAZolam TAB* 0.5 MG PO ONE (19:13)
--- NOTE | 2019-08-28 19:23 | PN ---
Hospitalist Progress Note Date of Service: 08/28/19 I was called at shift change to evaluate the patient for acute change in her respiratory status described "Does not look good - clammy and eyes rolled back " and patient subjective complains of shortness of breath, patient did not loose conscious and was awake at all time. STAT orders placed for EKG, CXR and labs including trop and D-dimers Patient seen and assessed at bedside. She did not look any different to me as compared to this morning. As mentioned in my assessment this morning she did have similar presentation when I assessed her this morning (expiratory wheezing , fatigue, hyperventilating ...). This morning I did actually check ABG on room air and her oxygenation and PaO2 were reassuring. My impression this morning was anxiety and hyperventilation exacerbated by her pain with possible underlying obesity and deconditioning. At this time, while awaiting for the Echo which was ordered but not done till thursday, I did order: Repeat BNP to compare and trend Repeat Trop to compare and trend. D-Dimers pending result will proceed with CTA and US leg CXR pending, EKG showed what is know already Afib rate controlled. I did order xanax 0.5 mg once and will sign out for the MD extrusion operator for re- evaluations
[2019-08-28 19:25] LABS: Calcium 9.7 mg/dL (8.6-10.3); Potassium 4.2 mmol/L (3.5-5.0)
[2019-08-28 19:30] LABS: BUN/Creatinine Ratio 30.5 (8-20); EGFR African American 39.6 (>60); EGFR Non-African American 32.8 (>60); Troponin I 0.01 ng/mL (<0.03)
[2019-08-28] MEDS ORDERED: NS 0.9% 1000 ML** 1,000 ML IV SCH (19:45)
[2019-08-28] MEDS: Enoxaparin(*) 80 MG/0.8 ML SYR SUBCUT SCH (19:55)
[2019-08-28] MEDS ORDERED: Iodixanol* (CONTRAST) 320 MG/ML 100 ML SDV IV ONE (19:59)
[2019-08-29 06:13] LABS: ABS Basophils 0.1 10^3/ul (0-0.2); ABS Lymphocytes 0.3 10^3/ul (1.0-4.8); ABS Monocytes 0.2 10^3/ul (0-0.8); ABS Neutrophils 6.5 10^3/ul (1.5-7.7); Hematocrit 30 % (35-47); Lymphocyte % 3.7 %; Mean Corpuscular HGB Conc 34 g/dL (31-36); Mean Corpuscular Hemoglobin 32 pg (27-31); Mean Corpuscular Volume 94 fL (80-97); Mean Platelet Volume 8.9 fL (7.4-10.4); Platelet Count 245 10^3/uL (150-450); Red Blood Count 3.16 10^6 /uL (3.70-4.87); Red Cell Distribution Width 14 % (10-15)
[2019-08-29 06:47] LABS: Calcium 9.3 mg/dL (8.6-10.3); Potassium 3.8 mmol/L (3.5-5.0)
[2019-08-29 06:53] LABS: BUN/Creatinine Ratio 37.2 (8-20); C Reactive Protein 72.88 mg/L (<8.01); EGFR African American 56.6 (>60); EGFR Non-African American 46.8 (>60); Phosphorus 3.5 mg/dL (2.5-5.0)
[2019-08-29 08:15] LABS: Erythrocyte Sed Rate 66 mm/Hr (0-29)
[2019-08-29] MEDS: Sertraline* 50 MG TAB PO SCH (08:48)
[2019-08-29] MEDS: Aspirin EC TAB* 81 MG TAB.EC PO SCH (08:48)
[2019-08-29] MEDS: Gabapentin CAP(*) 300 MG PO SCH ×3 (08:48→21:00)
[2019-08-29] MEDS: Dexamethasone TAB* 4 MG PO SCH ×3 (08:50→21:00)
[2019-08-29] MEDS: Pantoprazole TAB * 40 MG TAB PO SCH (08:50)
[2019-08-29] MEDS: Diltiazem CD CAP* 180 MG PO SCH (08:50)
[2019-08-29] MEDS: oxyCODONE/Acetamin 5/325 MG* TAB PO PRN ×2 (10:04→19:45)
--- NOTE | 2019-08-29 10:09 | ECHO ---
*[facility]* [place] [address] Fax #: [phone] Transthoracic Echocardiogram Patient: Radha Long : 1945 Study Date: 08/29/2019 Age: 74 Gender: F HR: 66 bpm Height: 64 in /162.6 cm BSA: 1.88 m^2 Weight: 182.6 lb /83 kg BMI: 31.4 kg/m^2 *International Marketing Executive: * Laisha Ro [facility] *Referring Physician: * Willian WolffReading Physician: * Nader Peoples MD Indications: SOB. History: Aortic valve disease. Asthma. Risk factors: Hypertension. Conclusions Summary: - Left ventricle: Systolic function is normal. The estimated ejection fraction is 60-65%. Wall motion is normal; there are no regional wall motion abnormalities. - Right ventricle: The cavity size is mildly dilated. Wall thickness is mildly increased. Systolic function is normal. - Left atrium: The atrium is severely dilated. - Mitral valve: There is trace regurgitation. - Aortic valve: There is no evidence of stenosis. There is trace regurgitation. - Tricuspid valve: There is trace to mild regurgitation. - Pulmonary arteries: Systolic pressure is at the upper limits of normal. Pulmonary artery pressure may be underestimated - Compared to study of 11/19/10, the is no significant change. Study data: Transthoracic echocardiogram. Procedure: Transthoracic echocardiography was performed. Image quality was fair. Complete 2D, spectral Doppler, and color flow Doppler. Location: Bedside. Patient status: Inpatient. Patient room number: 410-01. Rhythm: Atrial fibrillation. Findings Left ventricle: The cavity size is normal. Wall thickness is mildly increased. Systolic function is normal. The estimated ejection fraction is 60-65%. Wall motion is normal; there are no regional wall motion abnormalities. Left ventricular diastolic function parameters are indeterminate. Right ventricle: The cavity size is mildly dilated. Wall thickness is mildly increased. Systolic function is normal. Systolic pressure is at the upper limits of normal. Left atrium: The atrium is severely dilated. Right atrium: The atrium is mildly dilated. Mitral valve: The Mitral valve annulus appears mildly calcified. The leaflets are mildly thickened. There is no evidence of stenosis. There is trace regurgitation. Aortic valve: The valve is trileaflet. The leaflets are mildly thickened. There is no evidence of stenosis. There is trace regurgitation. Tricuspid valve: Poorly visualized. There is no evidence of stenosis. There is trace to mild regurgitation. Pulmonic valve: The leaflets are normal thickness. There is no evidence of stenosis. There is trace regurgitation. Aorta: Aortic root: The aortic root is appears normal. Ascending aorta: The ascending aorta is mildly dilated. Aortic arch: The aortic arch is appears normal. Pericardium: A prominent pericardial fat pad is present. There is no significant pericardial effusion. Pulmonary arteries: The main pulmonary artery is normal-sized. Systolic pressure is at the upper limits of normal. Pulmonary artery pressure may be underestimated Systemic veins: Inferior vena cava: The vessel is dilated. There is (< 50%) respiratory change in the IVC dimension. Measurements Left ventricle Value Ref Aortic valve Value Ref HEBER, LAX 3.9 cm 3.8 - 5.2 Gabriela diam, ED 1.9 cm ----- ESD, LAX 2.8 cm 2.2 - 3.5 Peak v, S 1.53 m/sec ----- FS, LAX 29 % 27 - 45 VTI, S 22.9 cm ----- PW, ED, LAX (H) 1.1 cm 0.6 - 0.9 Mean grad, S 3.0 mm Hg ----- FS 29 % 27 - 45 Peak grad, S 9.0 mm Hg ----- PW, ED (H) 1.1 cm 0.6 - 0.9 LVOT/AV, VTI ratio 0.96 ----- PW/ID, ED 0.28 OZILE, VTI 3.02 cm^2 ----- E', lat gabriela, TDI (L) 8.9 cm/sec >=10.0 OZIEL, Vmax 2.03 cm^2 --- -- E/e', lat gabriela, 13 TDI Mitral valve Value Ref E', med gabriela, TDI (L) 6.8 cm/sec >=7.0 Peak E 1.17 m/sec --- -- E/e', med gabriela, 17 Decel time 235 ms ----- TDI Peak grad, D 5.5 mm Hg ----- E', avg, TDI 7.9 cm/sec E/e', avg, TDI (H) 15 <=14 Pulmonic valve Value Ref Peak v, S 0.87 m/sec ----- LVOT Value Ref Peak grad, S 3.0 mm Hg ----- Diam, S 2.00 cm Area 3.1 cm^2 Tricuspid valve Value Ref Peak sherman, S 0.99 m/sec TR peak v 2.24 m/sec <=2.8 VTI, S 22.0 cm Peak RV-RA grad, S 20 mm Hg ----- Mean grad, S 2 mm Hg SV 69 ml Aortic root Value Ref SV/bsa 37 ml/m^2 Root diam 3.4 cm <4.1 Root max diam, ED 3.4 cm <4.1 Ventricular septum Value Ref IVS, ED (H) 1.2 cm 0.6 - 0.9 Ascending aorta Value Ref AAo AP diam, S 3.9 cm ----- Right ventricle Value Ref AW thickness, ED (H) 0.8 cm 0.1 - 0.5 Aortic arch Value Ref HEBER, LAX 3.2 cm Arch diam 2.4 cm ----- HEBER minor ax, A4C (H) 3.7 cm 1.9 - 3.5 mid Decending aorta Value Ref Pressure, S 35 mm Hg Chari peak sherman 0.6 m/sec ----- Left atrium Value Ref Pulmonary artery Value Ref AP dim, ES (H) 4.10 cm 2.70 - Pressure, S 32.0 mm Hg ----- 3.80 ML dim, A4C 4.5 cm Inferior vena cava Value Ref SI dim, A4C 5.9 cm Diam 2.7 cm ----- Vol/bsa, ES, 1-p (H) 41 ml/m^2 11 - 40 A4C Vol/bsa, ES, A/L (H) 54 ml/m^2 16 - 34 Right atrium Value Ref SI dim, ES (H) 5.4 cm 3.4 - 5.3 ML dim, ES, A4C (H) 4.7 cm 2.6 - 4.4 SI dim, ES, A4C (H) 5.4 cm 3.4 - 5.3 Estimated RAP 15 mm Hg Legend: (L) and (H) shayy values outside specified reference range. Prepared and electronically signed by Nader Peoples MD 08/29/2019 10:08
--- NOTE | 2019-08-29 17:39 | PN ---
Subjective Date of Service: 08/29/19 Interval History: Patient seen and examined. Events from last evening noted. Patient states she is feeling much better this morning. Her back pain is improved and she was able to ambulate around the unit today. Denies fever or chills, no SOB, no chest pain. States her sciatic pain feels like "it usually does", but no worse. No further complaints. Past Medical History: Unchanged from Admission Objective Active Medications: Aspirin (Aspirin Ec Tab*) 81 mg PO DAILY [facility] Last Admin: 08/29/19 08:48 Dose: 81 mg Cyclobenzaprine HCl (Flexeril Tab*) 10 mg PO TID PRN PRN Reason: SPASMS - BACK Last Admin: 08/28/19 14:10 Dose: 10 mg Dexamethasone (Decadron Tab*) 4 mg PO BID [facility] Diltiazem HCl (Cardizem Cd Cap*) 180 mg PO DAILY [facility] Last Admin: 08/29/19 08:50 Dose: 180 mg Enoxaparin Sodium (Lovenox(*)) 80 mg SUBCUT Q24H [facility] Last Admin: 08/28/19 19:55 Dose: 80 mg Gabapentin (Neurontin Cap(*)) 300 mg PO TID [facility] Last Admin: 08/29/19 15:12 Dose: 300 mg Sodium Chloride (Ns 0.9% 1000 Ml) 1,000 mls @ 125 mls/hr IV .per rate [facility] Ondansetron HCl (Zofran Inj*) 4 mg IV Q4H PRN PRN Reason: NAUSEA/VOMITING Oxycodone/Acetaminophen (Percocet 5/325 Tab*) 1 tab PO Q4H PRN PRN Reason: PAIN - SEVERE Last Admin: 08/29/19 10:04 Dose: 1 tab Pantoprazole Sodium (Protonix Tab*) 40 mg PO DAILY [facility] Last Admin: 08/29/19 08:50 Dose: 40 mg Senna (Senokot 8.6 Mg Tab*) 1 tab PO BID PRN PRN Reason: CONSTIPATION Last Admin: 08/28/19 07:36 Dose: 1 tab Sertraline HCl (Zoloft*) 50 mg PO DAILY [facility] Last Admin: 08/29/19 08:48 Dose: 50 mg Vital Signs - 8 hr 08/29/19 08/29/19 08/29/19 10:04 12:22 15:12 Temperature 97.3 F Pulse Rate 79 Respiratory 24 20 23 Rate Blood Pressure 152/90 (mmHg) O2 Sat by Pulse 95 Oximetry 08/29/19 15:40 Temperature 98.1 F Pulse Rate 79 Respiratory 18 Rate Blood Pressure 140/81 (mmHg) O2 Sat by Pulse 97 Oximetry Oxygen Devices in Use Now: None Appearance: alert, NAD Eyes: PERRLA Ears/Nose/Mouth/Throat: NL Teeth, Lips, Gums, Mucous Membranes Moist Neck: NL Appearance and Movements; NL JVP Respiratory: Symmetrical Chest Expansion and Respiratory Effort, Clear to Auscultation Cardiovascular: NL Sounds; No Murmurs; No JVD Abdominal: NL Sounds; No Tenderness; No Distention Extremities: No Edema Skin: No Rash or Ulcers Neurological: Alert and Oriented x 3, NL Sensation, NL Muscle Strength and Tone Nutrition: Taking PO's Result Diagrams: 08/29/19 05:13 08/29/19 05:13 Microbiology and Other Data: Microbiology 08/25/19 10:00 Aerobic Blood Culture - Preliminary Blood Venous No Growth Day 1 Anaerobic Blood Culture - Preliminary No Growth Day 1 08/25/19 09:51 Aerobic Blood Culture - Preliminary Blood Venous No Growth Day 1 Anaerobic Blood Culture - Preliminary No Growth Day 1 Diagnostic Imaging: *[facility]* [place] [address] Fax #: [phone] Transthoracic Echocardiogram Patient: Radha Long : 1945 Study Date: 08/29/2019 Age: 74 Gender: F HR: 66 bpm Height: 64 in /162.6 cm BSA: 1.88 m^2 Weight: 182.6 lb /83 kg BMI: 31.4 kg/m^2 *Cage/Vault Supervisor: * Laisha Ro RDCS *Referring Physician: * Willian Wolff *Reading Physician: * Nader Peoples MD Indications: SOB. History: Aortic valve disease. Asthma. Risk factors: Hypertension. Conclusions Summary: - Left ventricle: Systolic function is normal. The estimated ejection fraction is 60-65%. Wall motion is normal; there are no regional wall motion abnormalities. - Right ventricle: The cavity size is mildly dilated. Wall thickness is mildly increased. Systolic function is normal. - Left atrium: The atrium is severely dilated. - Mitral valve: There is trace regurgitation. - Aortic valve: There is no evidence of stenosis. There is trace regurgitation. - Tricuspid valve: There is trace to mild regurgitation. - Pulmonary arteries: Systolic pressure is at the upper limits of normal. Pulmonary artery pressure may be underestimated - Compared to study of 11/19/10, the is no significant change. Study data: Transthoracic echocardiogram. Procedure: This report is only to be considered final once signed by the Provider(s) as displayed in the "<Electronically Signed by >" field (s). Absence of a signature indicates the report is in a draft status and still needs to be finalized. In the event this document was created by someone other than the signing Provider, the individual initiating the document will be listed in the "Entered by:" or "Dictated by:" prince. 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 Elevated CRP and ESR. - Patient Problems (1) Low back pain Code(s): M54.5 - LOW BACK PAIN SNOMED Code(s): 051028777 Comment: - Given the MRI finding with dural enhacement, evaluated by Dr. Porter; per note from Dr. Wolff at admission, discussion with radiologist hisimpression/ recommendations that the finding are not a strong indicator of metastasis but rather an infectious/Inflammatory process. - Repeat MRI 08/27/19 did reveal improvement in the enhacement, etiology remains unclear - Patient reporting improvement today and is ambulating so she is clinically improving - ESR and CRP trending down, do not feel need to consult ID or rheumatology at this time - Continue monitoring and tapering steroids, since she is improving on steroids , process is more likely reactive/inflammatory rather than infectious, as she is not mounting an immune response, eg, no fever, no white count and blood cultures negative to date (2) SARAH (acute kidney injury) Code(s): N17.9 - ACUTE KIDNEY FAILURE, UNSPECIFIED SNOMED Code(s): 80290719 Comment: - Likely due to NSAID, Toradol, Decadron - Now off toradol, creat trending down, decreased decadron to BID and will continue to taper - Bladder scans do not show high volume retention, only around 180ml, do not suspect this is contributing but will US kidneys if renal function does not come back to baseline (3) Atrial fibrillation Code(s): I48.91 - UNSPECIFIED ATRIAL FIBRILLATION SNOMED Code(s): 32519368 Comment: - Likely not new onset, as patient is on cardizem, however, she is not on AC and does not have a director of casino and was unaware of this diagnosis? - Cardizem was increased to 180 mg daily, no RVR on tele - ECHO with no wall motion abnormalities and no changes from previous; EF >60% - In terms of AC, [id number]-ZHBx score is "4" and her HAS-Bled Score is "3" ( high risk of bleed) due to her concurrent therapy with NSAID and steroid for her back pain - For now, continue aspirin alone until off decadron (toradol has been stopped ) and then will start eliquis - Needs outpatient follow up with PCP and cardiology (4) Hypertension Code(s): I10 - ESSENTIAL (PRIMARY) HYPERTENSION SNOMED Code(s): 54172161 Comment: - Diltiazem CD 180 mg daily (5) Wheezy Code(s): R06.2 - WHEEZING SNOMED Code(s): 67477451 Comment: - Per notes, appeared patient was hyperventilating while in pain - No wheeze today - Low dose benzo PRN, likely an emotional component to this finding (6) DVT prophylaxis Code(s): Z29.9 - ENCOUNTER FOR PROPHYLACTIC MEASURES, UNSPECIFIED SNOMED Code( s): 192827378 Comment: - heparin sc (7) Full code status Code(s): Z78.9 - OTHER SPECIFIED HEALTH STATUS SNOMED Code(s): 079468371 Status and Disposition: Inpatient, dispo home with PT vs STEPHANI.
[2019-08-29] MEDS: Enoxaparin(*) 80 MG/0.8 ML SYR SUBCUT SCH (19:41)
[2019-08-30 06:35] LABS: BUN/Creatinine Ratio 42.5 (8-20); Calcium 9.3 mg/dL (8.6-10.3); EGFR African American 76.6 (>60); EGFR Non-African American 63.3 (>60)
[2019-08-30] MEDS: oxyCODONE/Acetamin 5/325 MG* TAB PO PRN ×2 (06:35→10:18)
[2019-08-30] MEDS: Dexamethasone TAB* 4 MG PO SCH (10:17)
[2019-08-30] MEDS: Gabapentin CAP(*) 300 MG PO SCH ×2 (10:17→14:00)
[2019-08-30] MEDS: Aspirin EC TAB* 81 MG TAB.EC PO SCH (10:17)
[2019-08-30] MEDS: Pantoprazole TAB * 40 MG TAB PO SCH (10:18)
[2019-08-30] MEDS: Diltiazem CD CAP* 180 MG PO SCH (10:18)
[2019-08-30] MEDS: Sertraline* 50 MG TAB PO SCH (10:18)
[2019-08-30] MEDS: Cyclobenzaprine TAB* 10 MG PO PRN (10:18)
[2019-08-30 10:23] LABS: ABS Lymphocytes 0.4 10^3/ul (1.0-4.8); ABS Monocytes 0.2 10^3/ul (0-0.8); ABS Neutrophils 9.1 10^3/ul (1.5-7.7); Hematocrit 36 % (35-47); Lymphocyte % 3.8 %; Mean Corpuscular HGB Conc 33 g/dL (31-36); Mean Corpuscular Hemoglobin 32 pg (27-31); Mean Corpuscular Volume 96 fL (80-97); Mean Platelet Volume 8.6 fL (7.4-10.4); Platelet Count 287 10^3/uL (150-450); Red Blood Count 3.74 10^6 /uL (3.70-4.87); Red Cell Distribution Width 14 % (10-15); White Blood Count 9.7 10^3/uL (3.5-10.8)
[2019-08-30 10:33] LABS: C Reactive Protein 38.21 mg/L (<8.01)
[2019-08-30 12:41] VITALS: BP 152/89
--- NOTE | 2019-08-30 14:57 | PN ---
Progress Note - Progress Note Date of Service: 08/30/19 SOAP: Subjective: []No events ON. Tolerates PO well, Voids, Ambulate. Pain significantly better controlled today. Wants to go home. Patient was ready for DC at time of visit. Objective: []VSS, Afebrile. AAOx3, ZENAIDA, face symmetric Moves all extremities well Sensory grossly intact to light touch Assessment: []74 yof with axial back pain, Grade I spondylolisthesis L4-5 with dura enhancement/thickening. Plan: [] DC today per primary. Follow up in office in 2-4 weeks. Office phone number provided to nurse at discharge. Appreciate IM care. Efrem Porter MD
--- NOTE | 2019-08-30 23:22 | DS ---
CC: Dr. Edgar Deleon; Dr. Porter * DISCHARGE SUMMARY: DATE OF ADMISSION: 08/25/19 DATE OF DISCHARGE: 08/30/19 PRIMARY CARE PROVIDER: Dr. Edgar Deleon. MY ATTENDING FOR TODAY: Dr. Merari Corbett.* (DICTATED BY RODRIGO BENAVIDES NP) HOSPITAL COURSE: Please refer to admitting H and P on 08/25/19, but in short, Ms. Long is a very pleasant 74-year-old female patient with a history of hypertension, chronic low back pain, and questionable history of atrial fibrillation, presenting to the emergency department with complaints of sciatic pain. The patient states previously she had some left-sided sciatica; however, when she came to the ED, she had an inability to ambulate and complaints of right-sided sciatic pain that was radiating down the leg and making it difficult for her to ambulate and the pain was intractable and quite severe. She had an MRI that was done in the emergency department which showed multilevel degenerative disk disease and also multilevel facet arthropathy; however, the patient was unable to ambulate and she was admitted for pain management and physical therapy evaluation. However, in terms of the atrial fibrillation, the patient states that she had no idea she has a history of atrial fibrillation. She was noted to be in Afib chronically with a controlled rate. She is on Cardizem. She thought that she was on Cardizem for hypertension and again states she was unaware of the Afib. In any care, she was admitted again for pain control and then we did discuss anticoagulation with the patient as well. Because the patient's pain, however, was so intractable, we did trend an ESR and CRP which were found to be elevated. At that time, we did consult Neurosurgery to evaluate her films and also her lab work. Essentially the films as interpreted by Dr. Porter is that the MRI did not reveal any evidence of an abscess or a hematoma. She had some increased signal at the L4-L5 level and a grade 1 spondylolisthesis; however, there was this questionable dural enhancement also at the L4-L5 level. With the increase in the CRP and the sed rate, there was some suspicion for some sort of carcinoma; however, the suspicion was very low and it was determined that this process of dural enhancement must represent either an inflammatory or infectious process. However, given that the patient has no fever and no white count, infectious process seemed to be much lower on the differential and inflammatory process was not that favored. She was started on Decadron and pain control. She did respond well to these interventions. Flexeril did help her with her spasm. She did take some Percocet periodically and was tapered on a p.o. Decadron regimen. Ultimately, her sed rate and CRP did begin to trend down. Initially, the CRP was 210, then went up to 242.29 on 08/27/19. On the day of discharge, the CRP was 38.21. It should be noted that the patient began ambulating with physical therapy back at her baseline, and again she did not have any fevers or any indicator that she had any infectious process going on. She did have a slightly elevated creatinine during the middle of her stay. It should be noted that between the Decadron and Toradol that she was on, this likely represented an acute kidney injury secondary to a prerenal state because of NSAIDs and steroids. The patient's Toradol was stopped. Her Decadron was tapered. Her creatinine on the day of discharge was 0.87 and essentially her labs have returned to baseline. She did have a transient elevation in her glucose which we also attributed to steroids. Essentially, the patient is feeling much improved. She states that the Flexeril has helped the most and she is anxious to be discharged to home. Her evaluation with Physical Therapy did recommend home physical therapy program. A referral was made for [facility] which will be visiting the patient within the next 48 hours. In terms of her atrial fibrillation, again the patient states that she was unaware of having Afib. She did have an echocardiogram, which showed no wall motion abnormalities and no changes from her previous echo, which was several years ago. Her ejection fraction is between 60% and 65%. She has no valvular abnormalities. In terms of anticoagulation, her CHADS/VASc score is a 4, and at the time of her evaluation, her HAS-BLED score would be a 3, but that was only due to concurrent use of NSAIDs and steroids. Now that her NSAIDs and steroids have been discontinued, her HAS-BLED score is now down to a 1 and the CHADS/ VASc score does remain high at 4. The patient was on therapeutic Lovenox while she was hospitalized, which has been discontinued for discharge. I did have a conversation with the patient about starting her on Eliquis which is usually well tolerated. She was agreeable to starting Eliquis as an outpatient which should be started on 08/31/19. DISCHARGE DIAGNOSES: 1. Intractable low back pain. 2. Acute kidney injury, now resolved. 3. Atrial fibrillation. 4. Hypertension. DISCHARGE MEDICATIONS: Include home medications: 1. Zoloft 50 mg p.o. daily. 2. Omeprazole 40 mg p.o. daily. 3. Percocet 1 tab p.o. q.6 hours as needed for pain, max daily dose 4 tablets, 5 days supply sent. 4. Senna 8.6 mg 1 tab p.o. 2 times a day as needed for constipation. 5. Gabapentin 300 mg 3 times a day. This was increased from her previous dose. 6. Diltiazem 180 mg p.o. daily. This is an increase from her previous dose. 7. Flexeril 10 mg p.o. 3 times a day as needed for spasms. 8. Apixaban 5 mg p.o. b.i.d. REVIEW OF SYSTEMS: On day of discharge, the patient denies any fever, fatigue, or chills. No chest pain, no shortness of breath. No nausea, no vomiting. No urinary complaints. Her back pain is rated a 3/10. It does radiate down the legs, but it is tolerable in her own words and is currently well controlled. She does not complain about any further arthralgias or myalgias. She does have some paresthesias at times, some stinging sensation radiating down the legs, but again this is improved and she has no further constitutional complaints. PHYSICAL EXAMINATION: Reveals a well-appearing, elderly female in no acute distress. Vital Signs: Blood pressure 152/89, heart rate 94, respiratory rate 20, O2 saturation 96% on room air with a temperature of 97.6. HEENT: The patient is atraumatic, normocephalic. PERRLA. Nonicteric sclerae. Oral mucosa is moist. Tongue is midline. Neck is supple, nontender. No JVD noted and no carotid bruit auscultated. Cardiovascular: S1, S2 present. No murmurs , gallops, or rubs noted. Rate is irregular. Lungs: Clear bilaterally to auscultation with no wheezing, rhonchi or rales. Abdomen: Soft, nontender, nondistended. Positive bowel sounds in all 4 quadrants. : Deferred. Musculoskeletal: There is no clubbing, no cyanosis, and no edema. She has +2 distal pulses palpable. She has point tenderness over the paraspinal muscles across the lower lumbar region of the back. She has gross motor and sensation that are intact. Neurologic: Grossly intact with no focal deficits. Psychiatric: She is cooperative and appropriate. Alert and oriented x3. LABORATORY DATA: WBC 9.7, RBC 3.74, hemoglobin 12.0, hematocrit 36, platelets 287. Sodium 137, potassium 4.0, chloride 103, CO2 27, BUN 37, creatinine 0.87, GFR 63.3, glucose 136, calcium 9.3. CRP 38.21. BNP 75 and sed rate 66, down from 93. IMAGING: MRI of lumbar spine dated 08/27/19 shows a grade 1 spondylolisthesis of the L4 and L5, minimal dural enhancement posteriorly at the thecal sac at L5 and S1 level, is less conspicuous and is improved since 08/25/19 with no evidence of epidural abscess. Again noted is edema and enhancement predominantly surrounding the left facet joint at L5-S1 and at L4-L5 likely due to arthropathy or inflammatory change. Chest x-rays dated 08/28/19 shows no evidence for any cardiopulmonary disease. CTA of the chest dated 08/28/19 shows no PE. DISPOSITION: The patient was discharged to home in the care of neighbor in stable condition. The patient stated understanding of her discharge instructions, new medications , and followup. DIET: Heart healthy as tolerated. ACTIVITY: Progress activity as tolerated. FOLLOWUP: The patient was instructed to follow up with Dr. Edgar Deleon, her primary care provider, within the next week; Dr. Porter of Neurosurgery within the next 2 to 4 weeks; and [facility] within the next 48 hours for sign on for home services for physical therapy. TIME SPENT: Forty minutes on discharge planning. RODRIGO BENAVIDES NP [id number] #: [id number] STEFANY
== END 2019-08-30 15:00 | disposition home health service (06) | DRG 552 ==
LOC: ED 08:17 → MED 22:29 → OBSVTOIN 08-27 12:05
PROVIDERS: ADMIT Student in an Organized Health Care Education/Training Program; ATTEND Internal Medicine
DX: M43.16 Spondylolisthesis, lumbar region (principal); N17.9 Acute kidney failure, unspecified; E21.3 Hyperparathyroidism, unspecified; I10 Essential (primary) hypertension; J45.909 Unspecified asthma, uncomplicated; K21.9 Gastro-esophageal reflux disease without esophagitis; F41.9 Anxiety disorder, unspecified; Z96.651 Presence of right artificial knee joint; M54.31 Sciatica, right side; I48.91 Unspecified atrial fibrillation; M47.819 Spondylosis without myelopathy or radiculopathy, site unspecified; F32.9 Major depressive disorder, single episode, unspecified; M51.36 Other intervertebral disc degeneration, lumbar region; M53.3 Sacrococcygeal disorders, not elsewhere classified; G89.29 Other chronic pain; T39.395A Adverse effect of other nonsteroidal anti-inflammatory drugs [NSAID], initial encounter; T38.0X5A Adverse effect of glucocorticoids and synthetic analogues, initial encounter; Y92.239 Unspecified place in hospital as the place of occurrence of the external cause; Z79.899 Other long term (current) drug therapy
CPT/HCPCS: 36415; 36600; 71045; 71275; 72114; 72158; 74174; 80048; 80053; 80076; 81003; 81015; 82550; 82803; 83605; 83735; 83880; 84100; 84484; 85025; 85379; 85610; 85652; 85730; 86140; 87040; 93005; 93306; 93970; 96374; 96375; 99283; A9270-GY; A9579; G0378; G8978-GP-CI; G8978-GP-CJ; G8978-GP-CK; G8979-GP-CI; J1644; J1650; J1885; J2270; J2405; J3475; J3480; J8540; Q9967

== ENCOUNTER 2020-04-05 18:24 | Inpatient (IN) ==
[2020-04-05] MEDS ORDERED: NS 0.9% 1000 ml BAG 1,000 ML IV ONE (19:14)
[2020-04-05] MEDS ORDERED: Morphine 4 MG/ML VIAL (1 ml) IV ONE (19:25)
[2020-04-05] MEDS ORDERED: Ondansetron 4 mg VIAL 2 MG/ML 2 ml VIAL IV ONE (19:26)
[2020-04-05 21:32] LABS: INR 1.18 (0.82-1.09)
[2020-04-05 21:39] LABS: Troponin I 0.07 ng/mL (<0.03)
[2020-04-05 21:42] LABS: Albumin 3.8 g/dL (3.2-5.2)
[2020-04-05 21:48] LABS: Albumin/Globulin Ratio 1.2 (1-3); C Reactive Protein 337.17 mg/L (<8.01); Creatine Kinase 100 U/L (10-223); Globulin 3.3 g/dL (2-4); Total Protein 7.1 g/dL (6.4-8.9)
[2020-04-05 21:57] LABS: Anion Gap 12 mmol/L (2-11); CO2 Carbon Dioxide 33 mmol/L (22-32); Chloride 91 mmol/L (101-111); Sodium 136 mmol/L (135-145)
[2020-04-05] MEDS ORDERED: Lidocaine 1% w EPI 1:200,000 SDV 30 ML VIAL INJ ONE (22:34)
[2020-04-05 23:05] LABS: ABS Lymphocytes 0.9 10^3/ul (1.0-4.8); Eosinophil % 0.1 %; Hematocrit 35 % (35-47); Hemoglobin 11.7 g/dL (12.0-16.0); Lymphocyte % 9.4 %; Mean Corpuscular HGB Conc 33 g/dL (31-36); Mean Corpuscular Hemoglobin 32 pg (27-31); Mean Corpuscular Volume 97 fL (80-97); Nucleated Red Blood Cells % 0.1; Platelet Count 192 10^3/uL (150-450); Red Blood Count 3.66 10^6 /uL (3.70-4.87); Red Cell Distribution Width 15 % (10-15); White Blood Count 9.1 10^3/uL (3.5-10.8)
[2020-04-05] MEDS ORDERED: cefTRIAXone(*) 2 GM ADDV.VIAL 2 GM in NS 0.9% 100 ml BAG 100 ML IV ONE (23:11)
[2020-04-05] MEDS ORDERED: Vancomycin(*) 1,000 MG in NS 0.9% 250 ml 250 ML IV ONE (23:11)
[2020-04-05 23:15] LABS: ALT 6 U/L (7-52); Alkaline Phosphatase 90 U/L (34-104); BUN/Creatinine Ratio 18.3 (8-20); Blood Urea Nitrogen 15 mg/dL (6-24); EGFR Non-African American 67.8 (>60); Glucose 124 mg/dL (70-100)
[2020-04-05 23:16] LABS: Calcium 9.4 mg/dL (8.6-10.3)
[2020-04-05] MEDS ORDERED: Vancomycin(*) 1,000 MG BAG/ADDV ONE (23:19)
[2020-04-05 23:22] LABS: Body Fluid Source Synovial Fluid
[2020-04-05 23:51] LABS: Magnesium 1.2 mg/dL (1.9-2.7); Potassium Redraw 3.1 mmol/L (3.5-5.0)
[2020-04-06 00:13] LABS: Body Fluid Mono 8 %
[2020-04-06] MEDS ORDERED: Vancomycin(*) 1,000 MG in NS 0.9% 250 ml 250 ML IVPB ONE (01:07)
[2020-04-06] MEDS ORDERED: Magnesium Sulfate IV 3 GM in NS 0.9% 100 ml BAG 100 ML IVPB ONE (01:34)
[2020-04-06] MEDS ORDERED: Vancomycin per Pharmacy 1 EA NOTE FOLLOW UP SCH (02:00)
[2020-04-06] MEDS: Potassium Chlor 20 meq TAB.ER PO SCH ×2 (03:36→05:46)
[2020-04-06] MEDS: Morphine 2 MG/ML SYRINGE IV PRN ×6 (03:49→23:45)
[2020-04-06] MEDS ORDERED: Heparin 5000 UNITS/ML VIAL(*) 1 ml vial SUBCUT SCH (06:00)
[2020-04-06 06:53] LABS: ABS Basophils 0.1 10^3/ul (0-0.2); ABS Lymphocytes 1.1 10^3/ul (1.0-4.8); Eosinophil % 0.3 %; Hematocrit 34 % (35-47); Hemoglobin 11.9 g/dL (12.0-16.0); Lymphocyte % 10.9 %; Mean Corpuscular HGB Conc 35 g/dL (31-36); Mean Corpuscular Hemoglobin 32 pg (27-31); Mean Corpuscular Volume 93 fL (80-97); Mean Platelet Volume 8.3 fL (7.4-10.4); Platelet Count 203 10^3/uL (150-450); Red Blood Count 3.69 10^6 /uL (3.70-4.87); Red Cell Distribution Width 15 % (10-15); White Blood Count 10.5 10^3/uL (3.5-10.8)
[2020-04-06 06:56] LABS: BUN/Creatinine Ratio 19.7 (8-20); C Reactive Protein 278.59 mg/L (<8.01); Calcium 8.3 mg/dL (8.6-10.3); EGFR African American 89.5 (>60); Magnesium 1.9 mg/dL (1.9-2.7); Troponin I 0.02 ng/mL (<0.03)
[2020-04-06 06:59] LABS: Potassium 2.7 mmol/L (3.5-5.0)
[2020-04-06] MEDS ORDERED: Potassium Chlor 10 meq TAB PO ONE (07:03)
[2020-04-06] MEDS: KCL 20 MEQ/100 ML IVPREMIX 20 MEQ/100 ML BAG IV SCH ×3 (07:39→13:31)
[2020-04-06 08:42] LABS: Urine Appearance Cloudy; Urine Bilirubin Negative (Negative); Urine Blood 2+ (Negative); Urine Color Amber; Urine Glucose Negative (Negative); Urine Ketones Negative (Negative); Urine Nitrite Negative (Negative); Urine Protein 1+(30 mg/dL) (Negative); Urine Specific Gravity 1.019 (1.010-1.030); Urine Urobilinogen Positive (Negative)
[2020-04-06 08:50] LABS: Urine Bacteria Absent (Absent); Urine Red Blood Cell 1+(3-5/hpf) (Absent); Urine Squamous Epithelial Cell Present (Absent); Urine White Blood Cell 1+(6-10/hpf) (Absent)
[2020-04-06] MEDS ORDERED: Vancomycin(*) 1,000 MG in NS 0.9% 250 ml 250 ML IV SCH (10:00)
[2020-04-06 11:46] LABS: BUN/Creatinine Ratio 22.1 (8-20); Calcium 8.5 mg/dL (8.6-10.3); EGFR African American 88.2 (>60); EGFR Non-African American 72.9 (>60); Magnesium 2.3 mg/dL (1.9-2.7)
[2020-04-06 15:16] LABS: Uric Acid 4.5 mg/dL (2.3-6.6)
[2020-04-06] MEDS: ceFAZolin 1 GM ADVAN(*) 1 GM in NS 0.9% 50 ML 50 ML IVPB SCH (22:00)
[2020-04-06] MEDS: Heparin 5000 UNITS/ML VIAL(*) 1 ml vial SUBCUT SCH (22:14)
[2020-04-06] MEDS ORDERED: cefTRIAXone(*) 2 GM ADDV.VIAL 2 GM in NS 0.9% 100 ml BAG 100 ML IV SCH (23:00)
[2020-04-07] MEDS: ceFAZolin 1 GM ADVAN(*) 1 GM in NS 0.9% 50 ML 50 ML IVPB SCH ×3 (04:16→19:10)
[2020-04-07] MEDS: Morphine 2 MG/ML SYRINGE IV PRN ×6 (04:28→19:09)
[2020-04-07] MEDS: Heparin 5000 UNITS/ML VIAL(*) 1 ml vial SUBCUT SCH ×3 (04:29→21:22)
[2020-04-07 06:36] LABS: ABS Basophils 0.1 10^3/ul (0-0.2); ABS Eosinophils 0.1 10^3/ul (0-0.6); ABS Lymphocytes 1.3 10^3/ul (1.0-4.8); ABS Monocytes 0.6 10^3/ul (0-0.8); Eosinophil % 1.6 %; Hematocrit 31 % (35-47); Hemoglobin 10.6 g/dL (12.0-16.0); Lymphocyte % 16.6 %; Mean Corpuscular HGB Conc 35 g/dL (31-36); Mean Corpuscular Hemoglobin 32 pg (27-31); Mean Corpuscular Volume 93 fL (80-97); Mean Platelet Volume 8.6 fL (7.4-10.4); Platelet Count 194 10^3/uL (150-450); Red Blood Count 3.27 10^6 /uL (3.70-4.87); Red Cell Distribution Width 15 % (10-15); White Blood Count 7.8 10^3/uL (3.5-10.8)
[2020-04-07 06:50] LABS: BUN/Creatinine Ratio 23.5 (8-20); C Reactive Protein 268.02 mg/L (<8.01); EGFR African American 83.2 (>60); EGFR Non-African American 68.7 (>60); Magnesium 1.9 mg/dL (1.9-2.7); Potassium 3.8 mmol/L (3.5-5.0)
[2020-04-07] MEDS ORDERED: Vancomycin Trough Check NOTE FOLLOW UP ONE (09:30)
[2020-04-07] MEDS ORDERED: NS 0.9% 1000 ml BAG 1,000 ML IV SCH ×2 (11:30→12:23)
[2020-04-07] MEDS: Nystatin SUSPENSION 100,000 UNITS/ML UDC PO SCH ×3 (13:32→21:22)
[2020-04-07 20:08] LABS: Folate 6.23 ng/mL (>3.99)
[2020-04-08] MEDS: ceFAZolin 1 GM ADVAN(*) 1 GM in NS 0.9% 50 ML 50 ML IVPB SCH ×3 (03:43→20:47)
[2020-04-08 06:28] LABS: ABS Basophils 0.1 10^3/ul (0-0.2); ABS Eosinophils 0.2 10^3/ul (0-0.6); ABS Lymphocytes 1.2 10^3/ul (1.0-4.8); ABS Monocytes 0.5 10^3/ul (0-0.8); Eosinophil % 3.2 %; Hematocrit 29 % (35-47); Hemoglobin 9.6 g/dL (12.0-16.0); Lymphocyte % 20.1 %; Mean Corpuscular HGB Conc 33 g/dL (31-36); Mean Corpuscular Hemoglobin 31 pg (27-31); Mean Corpuscular Volume 94 fL (80-97); Mean Platelet Volume 8.3 fL (7.4-10.4); Nucleated Red Blood Cells % 0.1; Platelet Count 187 10^3/uL (150-450); Red Blood Count 3.05 10^6 /uL (3.70-4.87); Red Cell Distribution Width 15 % (10-15); White Blood Count 6.1 10^3/uL (3.5-10.8)
[2020-04-08 06:45] LABS: C Reactive Protein 218.04 mg/L (<8.01); Calcium 9.2 mg/dL (8.6-10.3); EGFR African American 73.7 (>60); EGFR Non-African American 60.9 (>60); Magnesium 1.8 mg/dL (1.9-2.7); Potassium 3.5 mmol/L (3.5-5.0)
[2020-04-08] MEDS: Morphine 2 MG/ML SYRINGE IV PRN ×3 (08:01→20:43)
[2020-04-08] MEDS: Nystatin SUSPENSION 100,000 UNITS/ML UDC PO SCH ×4 (08:06→20:42)
[2020-04-09] MEDS: ceFAZolin 1 GM ADVAN(*) 1 GM in NS 0.9% 50 ML 50 ML IVPB SCH ×3 (03:50→21:45)
[2020-04-09 07:48] LABS: ABS Eosinophils 0.2 10^3/ul (0-0.6); ABS Lymphocytes 0.7 10^3/ul (1.0-4.8); ABS Monocytes 0.4 10^3/ul (0-0.8); Eosinophil % 4.1 %; Hematocrit 29 % (35-47); Lymphocyte % 15.5 %; Mean Corpuscular HGB Conc 34 g/dL (31-36); Mean Corpuscular Hemoglobin 32 pg (27-31); Mean Corpuscular Volume 93 fL (80-97); Platelet Count 221 10^3/uL (150-450); Red Blood Count 3.15 10^6 /uL (3.70-4.87); Red Cell Distribution Width 14 % (10-15); White Blood Count 4.5 10^3/uL (3.5-10.8)
[2020-04-09] MEDS: Nystatin SUSPENSION 100,000 UNITS/ML UDC PO SCH ×4 (07:53→21:45)
[2020-04-09 08:05] LABS: BUN/Creatinine Ratio 26.1 (8-20); C Reactive Protein 144.86 mg/L (<8.01); Calcium 9.4 mg/dL (8.6-10.3); EGFR African American 100.1 (>60); EGFR Non-African American 82.7 (>60); Magnesium 1.4 mg/dL (1.9-2.7); Potassium 3.4 mmol/L (3.5-5.0)
[2020-04-09] MEDS ORDERED: Magnesium Sulf 4 GM/100 ML IV 4,000 MG/100 ML BAG IVPB ONE (08:15)
[2020-04-09] MEDS ORDERED: KCL 20 MEQ/100 ML IVPREMIX 20 MEQ/100 ML BAG IV ONE (08:16)
[2020-04-09] MEDS ORDERED: Magnesium Hydroxide LIQ 30 ML UDC PO PRN (08:53)
[2020-04-09] MEDS ORDERED: Polyethylene Glycol 3350 17 GM PACKET PO PRN (08:53)
[2020-04-09] MEDS: Senna TAB 8.6 mg TAB PO PRN ×2 (09:25→21:46)
[2020-04-09] MEDS: Lactulose 30 ml UDC PO SCH ×3 (09:25→21:45)
[2020-04-10] MEDS: ceFAZolin 1 GM ADVAN(*) 1 GM in NS 0.9% 50 ML 50 ML IVPB SCH ×2 (04:06→12:17)
[2020-04-10 06:32] LABS: ABS Basophils 0.1 10^3/ul (0-0.2); ABS Eosinophils 0.2 10^3/ul (0-0.6); ABS Lymphocytes 0.9 10^3/ul (1.0-4.8); ABS Monocytes 0.4 10^3/ul (0-0.8); Eosinophil % 3.8 %; Hematocrit 30 % (35-47); Hemoglobin 10.3 g/dL (12.0-16.0); Lymphocyte % 20.1 %; Mean Corpuscular HGB Conc 35 g/dL (31-36); Mean Corpuscular Hemoglobin 32 pg (27-31); Mean Corpuscular Volume 92 fL (80-97); Mean Platelet Volume 7.7 fL (7.4-10.4); Platelet Count 248 10^3/uL (150-450); Red Blood Count 3.22 10^6 /uL (3.70-4.87); Red Cell Distribution Width 15 % (10-15); White Blood Count 4.3 10^3/uL (3.5-10.8)
[2020-04-10 06:51] LABS: BUN/Creatinine Ratio 17.2 (8-20); Calcium 9.5 mg/dL (8.6-10.3); EGFR African American 109.2 (>60); EGFR Non-African American 90.2 (>60); Potassium 3.4 mmol/L (3.5-5.0)
[2020-04-10] MEDS: Nystatin SUSPENSION 100,000 UNITS/ML UDC PO SCH ×3 (07:45→16:49)
[2020-04-10] MEDS: Lactulose 30 ml UDC PO SCH ×3 (07:46→12:20)
[2020-04-10 07:59] LABS: Magnesium 1.7 mg/dL (1.9-2.7)
[2020-04-10] MEDS ORDERED: Magnesium Sulfate 2 gm BAG 2 GM/50 ML BAG IVPB ONE (08:47)
[2020-04-10] MEDS ORDERED: hydrALAZINE 20 mg/ml 1 ML Vial IV IV SLOW PU PRN ×2 (08:54→13:05)
[2020-04-10] MEDS ORDERED: Potassium Chlor 20 meq TAB.ER PO SCH (09:00)
[2020-04-10 13:59] VITALS: BP 164/90
[2020-04-10] MEDS ORDERED: Cyanocobalamin INJ 1,000 MCG/ML VIAL 1 ML VIAL IM ONE (15:08)
[2020-04-11 15:14] LABS: Anaplasma phagocytophilum Negative (Negative); B. miyamotoi PCR, B Negative (Negative); Babesia divergens/MO-1 Negative (Negative); Babesia ducani Negative (Negative); Ehrlichia chaffeensis Negative (Negative); Ehrlichia ewingii/canis Negative (Negative); Ehrlichia muris eauclairensis Negative (Negative)
== END 2020-04-10 19:00 | disposition home health service (06) | DRG 603 ==
LOC: ED 18:24 → MED 18:24 → OBSVTOIN 04-06 01:29
PROVIDERS: ADMIT Internal Medicine; ATTEND Internal Medicine

== ENCOUNTER 2020-04-17 14:12 | Observation (INO) ==
[2020-04-17] MEDS ORDERED: NS 0.9% 1000 ml BAG 1,000 ML IV ONE (14:21)
[2020-04-17 14:45] LABS: Hematocrit 38 % (35-47); Hemoglobin 13.2 g/dL (12.0-16.0); Mean Corpuscular HGB Conc 34 g/dL (31-36); Mean Corpuscular Hemoglobin 32 pg (27-31); Mean Corpuscular Volume 92 fL (80-97); Mean Platelet Volume 8.1 fL (7.4-10.4); Platelet Count 488 10^3/uL (150-450); Red Blood Count 4.18 10^6 /uL (3.70-4.87); Red Cell Distribution Width 15 % (10-15); White Blood Count 6.7 10^3/uL (3.5-10.8)
[2020-04-17 15:08] LABS: BUN/Creatinine Ratio 18.8 (8-20); Calcium 9.5 mg/dL (8.6-10.3); EGFR African American 84.4 (>60); EGFR Non-African American 69.7 (>60); Magnesium 1.5 mg/dL (1.9-2.7); Potassium 2.8 mmol/L (3.5-5.0)
[2020-04-17] MEDS ORDERED: Magnesium Sulfate 2 gm BAG 2 GM/50 ML BAG IVPB ONE (15:12)
[2020-04-17] MEDS ORDERED: KCL 20 MEQ/100 ML IVPREMIX 20 MEQ/100 ML BAG IV ONE (15:12)
[2020-04-17] MEDS ORDERED: Magnesium Sulfate IV 3 GM in NS 0.9% 100 ml BAG 100 ML IVPB ONE (15:42)
[2020-04-17] MEDS ORDERED: Potassium Chlor 10 meq TAB PO ONE (15:42)
[2020-04-17 15:50] LABS: ABS Basophils 0.1 10^3/ul (0-0.2); ABS Eosinophils 0.1 10^3/ul (0-0.6); ABS Lymphocytes 1.3 10^3/ul (1.0-4.8); ABS Monocytes 0.5 10^3/ul (0-0.8); Eosinophil % 1.5 %; Lymphocyte % 19.7 %; Nucleated Red Blood Cells % 0.1
[2020-04-17] MEDS ORDERED: Potassium Chloride LIQUID 20 MEQ/15 ML LIQUID PO ONE ×2 (16:02→20:00)
[2020-04-17 16:09] LABS: C Reactive Protein 47.56 mg/L (<8.01)
[2020-04-17] MEDS ORDERED: NS 0.9% 1000 ml BAG 1,000 ML IV SCH (16:15)
[2020-04-18 03:25] LABS: Urine Appearance Cloudy; Urine Bilirubin Negative (Negative); Urine Blood 1+ (Negative); Urine Color Yellow; Urine Glucose Negative (Negative); Urine Ketones Negative (Negative); Urine Nitrite Negative (Negative); Urine Protein Negative (Negative); Urine Specific Gravity 1.009 (1.010-1.030); Urine Urobilinogen Negative (Negative)
[2020-04-18 03:32] LABS: Urine Bacteria 1+ (Absent); Urine Red Blood Cell Trace(0-2/hpf) (Absent); Urine Squamous Epithelial Cell Present (Absent); Urine White Blood Cell Trace(0-5/hpf) (Absent)
[2020-04-18 08:45] LABS: ABS Eosinophils 0.1 10^3/ul (0-0.6); ABS Monocytes 0.3 10^3/ul (0-0.8); Hematocrit 34 % (35-47); Hemoglobin 11.6 g/dL (12.0-16.0); Lymphocyte % 20.9 %; Mean Corpuscular HGB Conc 34 g/dL (31-36); Mean Corpuscular Hemoglobin 31 pg (27-31); Mean Corpuscular Volume 93 fL (80-97); Platelet Count 386 10^3/uL (150-450); Red Cell Distribution Width 15 % (10-15); White Blood Count 4.7 10^3/uL (3.5-10.8)
[2020-04-18 09:04] LABS: BUN/Creatinine Ratio 15.3 (8-20); Calcium 8.3 mg/dL (8.6-10.3); EGFR African American 95.3 (>60); EGFR Non-African American 78.8 (>60); Potassium 3.7 mmol/L (3.5-5.0)
[2020-04-18 13:21] VITALS: BP 153/64
[2020-04-18] MEDS ORDERED: Potassium Chlor 10 meq TAB PO ONE (14:39)
== END 2020-04-18 17:00 | disposition home or self-care (01) ==
LOC: MED 14:12 → ED 14:12 → MED 17:33
PROVIDERS: ADMIT Internal Medicine; ATTEND Internal Medicine